=== PATIENT | male | born 1935 | race Hispanic/Latino ===

== ENCOUNTER → 2017-10-12 | Outpatient (CLI) | payer OTHER | END | disposition home or self-care (01) | LOC: OIH 12:42 | PROVIDERS: ATTEND Family Medicine | DX: I10 Essential (primary) hypertension (principal) | CPT/HCPCS: 71046 ==

== ENCOUNTER 2018-02-03 10:06 | Emergency (ER) | payer OTHER ==
[2018-02-03 11:04] LABS: BASOPHILS % (AUTO) 0.7 % (0.0-5.0); EOSINOPHILS % (AUTO) 3.9 % (0.0-8.0); HEMATOCRIT 28.7 % (42-54); LYMPHOCYTES % (AUTO) 17.4 % (21.0-51.0); MEAN CORPUSCULAR HEMOGLOBIN 29.1 pg (27.0-33.0); MEAN CORPUSCULAR HGB CONC 33.7 g/dL (32.0-36.0); MEAN CORPUSCULAR VOLUME 86.3 fL (79-99); MONOCYTES % (AUTO) 6.4 % (3.0-13.0); NEUTROPHILS % (AUTO) 71.6 % (40.0-77.0); PLATELET COUNT (AUTO) 168 K/uL (130-400); RED BLOOD CELL COUNT(AUTO) 3.33 MIL/uL (4.50-6.20); RED CELL DISTRIBUTION WIDTH 14.5 % (11.0-15.5); WHITE BLOOD COUNT (AUTO) 5.8 K/uL (4.8-10.8)
[2018-02-03 11:07] LABS: APPEARANCE,URINE Clear (CLEAR); BILIRUBIN,URINE Negative (NEGATIVE); COLOR,URINE Yellow (YELLOW); GLUCOSE, URINE (UA) Negative (NEGATIVE); KETONES,URINE Negative (NEGATIVE); LEUKOCYTE ESTERASE ,URINE Negative (NEGATIVE); NITRATE,URINE Negative (NEGATIVE); OCCULT BLOOD,URINE Negative (NEGATIVE); PH,URINE 5.5 (5.0-8.0); PROTEIN,URINE Negative (NEGATIVE); UROBILINOGEN,URINE 0.2 mg/dL (0.2-1.0)
[2018-02-03] MEDS ORDERED: ONDANSETRON HCL MDV 20ML 2 MG/ML VIAL ONE (11:09)
[2018-02-03] MEDS ORDERED: SODIUM CHLORIDE 0.9% 1000ML 1,000 ML IV ONE (11:10)
[2018-02-03 11:18] LABS: POTASSIUM 4.1 mmol/L (3.5-5.1)
[2018-02-03 11:31] LABS: ALBUMIN 3.4 g/dL (3.5-5.0); BILIRUBIN,TOTAL 0.5 mg/dL (0.2-1.0); CREATINE KINASE MB 1.6 ng/mL (0.5-3.6); TOTAL PROTEIN, SERUM 6.4 g/dL (6.0-8.3)
[2018-02-03 11:46] LABS: INR 1.03 (0.85-1.15); PARTIAL THROMBOPLASTIN TIME 30.4 SEC (26.3-35.5); PROTHROMBIN TIME 10.8 SEC (9.6-11.6)
[2018-02-03] MEDS ORDERED: ACETAMINOPHEN 325 MG TAB ONE (12:11)
[2018-02-03] MEDS ORDERED: TRAMADOL HCL 50 MG TABLET ONE (12:12)
== END 2018-02-03 14:39 | disposition home or self-care (01) ==
LOC: EDH 10:06
DX: G44.209 Tension-type headache, unspecified, not intractable (principal); R11.2 Nausea with vomiting, unspecified; I12.9 Hypertensive chronic kidney disease with stage 1 through stage 4 chronic kidney disease, or unspecified chronic kidney disease; N18.9 Chronic kidney disease, unspecified; E78.5 Hyperlipidemia, unspecified; Z79.899 Other long term (current) drug therapy; Z87.891 Personal history of nicotine dependence; Z98.890 Other specified postprocedural states
CPT/HCPCS: 36415; 70450; 80053; 81003; 82150; 82550; 82553; 83690; 84484; 85025; 85610; 85651; 85730; 93005; 96361; 96374; 99285; J7030

== ENCOUNTER → 2018-02-04 | Outpatient (CLI) | payer OTHER | END | disposition home or self-care (01) | LOC: OIH 10:05 | PROVIDERS: ATTEND Family Medicine | DX: R10.9 Unspecified abdominal pain (principal); M47.896 Other spondylosis, lumbar region | CPT/HCPCS: 74018 ==

== ENCOUNTER 2018-07-21 11:55 | Emergency (ER) | payer OTHER ==
[2018-07-21] MEDS ORDERED: ONDANSETRON HCL 4 MG/2 ML VIAL ONE (12:26)
[2018-07-21 12:55] LABS: BASOPHILS % (AUTO) 0.4 % (0.0-5.0); EOSINOPHILS % (AUTO) 1.3 % (0.0-8.0); HEMATOCRIT 29.2 % (42-54); LYMPHOCYTES % (AUTO) 19.8 % (21.0-51.0); MEAN CORPUSCULAR HEMOGLOBIN 29.8 pg (27.0-33.0); MEAN CORPUSCULAR HGB CONC 33.3 g/dL (32.0-36.0); MEAN CORPUSCULAR VOLUME 89.6 fL (79-99); MONOCYTES % (AUTO) 7.3 % (3.0-13.0); NEUTROPHILS % (AUTO) 71.2 % (40.0-77.0); PLATELET COUNT (AUTO) 199 K/uL (130-400); RED BLOOD CELL COUNT(AUTO) 3.26 MIL/uL (4.50-6.20); RED CELL DISTRIBUTION WIDTH 13.2 % (11.0-15.5); WHITE BLOOD COUNT (AUTO) 5.6 K/uL (4.8-10.8)
[2018-07-21 13:08] LABS: CREATININE 1.9 mg/dL (0.5-1.5); POTASSIUM 4.4 mmol/L (3.5-5.1)
[2018-07-21 13:12] LABS: ALBUMIN 3.4 g/dL (3.5-5.0); BILIRUBIN,DIRECT 0.1 mg/dL (0.0-0.3); BILIRUBIN,TOTAL 0.4 mg/dL (0.2-1.0); TOTAL PROTEIN, SERUM 6.7 g/dL (6.0-8.3)
[2018-07-21 13:52] LABS: B-TYPE NATRIURETIC PEPTIDE 104 pg/mL (0-100)
== END 2018-07-21 14:21 | disposition home or self-care (01) ==
LOC: EDH 11:55
DX: J10.1 Influenza due to other identified influenza virus with other respiratory manifestations (principal); E86.0 Dehydration; E78.5 Hyperlipidemia, unspecified; I10 Essential (primary) hypertension; Z98.890 Other specified postprocedural states
CPT/HCPCS: 36415; 71045; 74176; 80048; 80076; 83690; 83880; 84484; 85025; 87804 ×2; 93005; 96361; 96374; 99285; J2405

== ENCOUNTER 2018-12-02 19:48 | Inpatient (IN) | payer OTHER ==
[~2018-12-02] VITALS: Ht 172.7 cm; Wt 100.2 kg
[2018-12-02 21:00] LABS: BILIRUBIN,URINE Negative (NEGATIVE); COLOR,URINE Yellow (YELLOW); GLUCOSE, URINE (UA) Negative (NEGATIVE); KETONES,URINE Negative (NEGATIVE); LEUKOCYTE ESTERASE ,URINE Negative (NEGATIVE); NITRATE,URINE Negative (NEGATIVE); OCCULT BLOOD,URINE Negative (NEGATIVE); PH,URINE 6.5 (5.0-8.0); PROTEIN,URINE Negative (NEGATIVE); UROBILINOGEN,URINE 0.2 mg/dL (0.2-1.0)
[2018-12-02 21:05] LABS: APPEARANCE,URINE CLEAR (CLEAR)
[2018-12-02 21:13] LABS: BASOPHILS % (AUTO) 0.4 % (0.0-5.0); EOSINOPHILS % (AUTO) 1.5 % (0.0-8.0); HEMATOCRIT 30.3 % (42-54); LYMPHOCYTES % (AUTO) 16.9 % (21.0-51.0); MEAN CORPUSCULAR HEMOGLOBIN 29.7 pg (27.0-33.0); MEAN CORPUSCULAR HGB CONC 33.4 g/dL (32.0-36.0); MEAN CORPUSCULAR VOLUME 88.9 fL (79-99); MONOCYTES % (AUTO) 10.2 % (3.0-13.0); PLATELET COUNT (AUTO) 222 K/uL (130-400); RED BLOOD CELL COUNT(AUTO) 3.41 MIL/uL (4.50-6.20); RED CELL DISTRIBUTION WIDTH 15.7 % (11.0-15.5); WHITE BLOOD COUNT (AUTO) 7.8 K/uL (4.8-10.8)
[2018-12-02 21:27] LABS: CREATININE 1.8 mg/dL (0.5-1.5); INR 0.98 (0.85-1.15); PARTIAL THROMBOPLASTIN TIME 31.3 SEC (26.3-35.5); POTASSIUM 4.8 mmol/L (3.5-5.1); PROTHROMBIN TIME 10.3 SEC (9.6-11.6)
[2018-12-02 21:32] LABS: ALBUMIN 3.3 g/dL (3.5-5.0); BILIRUBIN,TOTAL 0.2 mg/dL (0.2-1.0); TOTAL PROTEIN, SERUM 6.7 g/dL (6.0-8.3)
[2018-12-02] MEDS ORDERED: MORPHINE SULFATE 4 MG/1ML SYG ONE (22:51)
[2018-12-02] MEDS ORDERED: ONDANSETRON HCL 4 MG/2 ML VIAL ONE (22:51)
[2018-12-03] MEDS ORDERED: FUROSEMIDE 10 MG/ML 4ML VIAL ONE (08:30)
[2018-12-03] MEDS ORDERED: PANTOPRAZOLE SODIUM 40 MG TABLET.DR PO ONE (08:31)
[2018-12-03 09:55] LABS: BASOPHILS % (AUTO) 0.4 % (0.0-5.0); EOSINOPHILS % (AUTO) 0.5 % (0.0-8.0); HEMATOCRIT 30.5 % (42-54); LYMPHOCYTES % (AUTO) 12.2 % (21.0-51.0); MEAN CORPUSCULAR HEMOGLOBIN 29.8 pg (27.0-33.0); MEAN CORPUSCULAR HGB CONC 33.6 g/dL (32.0-36.0); MEAN CORPUSCULAR VOLUME 88.8 fL (79-99); MONOCYTES % (AUTO) 9.2 % (3.0-13.0); NEUTROPHILS % (AUTO) 77.7 % (40.0-77.0); NUCLEATED RED BLOOD CELLS 0.1 % (0.0-0.19); PLATELET COUNT (AUTO) 195 K/uL (130-400); RED BLOOD CELL COUNT(AUTO) 3.44 MIL/uL (4.50-6.20); RED CELL DISTRIBUTION WIDTH 15.9 % (11.0-15.5); WHITE BLOOD COUNT (AUTO) 6.9 K/uL (4.8-10.8)
[2018-12-03 10:06] LABS: PHOSPHORUS 3.8 mg/dL (2.5-4.9); POTASSIUM 4.1 mmol/L (3.5-5.1)
[2018-12-03 10:14] LABS: CREATININE 1.6 mg/dL (0.5-1.5)
[2018-12-03] MEDS ORDERED: ACETAMINOPHEN 325 MG TAB ONE (10:57)
[2018-12-03] MEDS ORDERED: ZOLPIDEM TARTRATE 5 MG TAB PO PRN (13:15)
[2018-12-03] MEDS ORDERED: ONDANSETRON HCL 4 MG/2 ML VIAL IV PRN (13:15)
[2018-12-03] MEDS ORDERED: HYDROMORPHONE 1 MG/1 ML AMP IV PRN (13:15)
[2018-12-03] MEDS ORDERED: VANCOMYCIN 1GM+NS 250ML 250 ML IV SCH (13:30)
[2018-12-03 15:00] VITALS: BP 135/81
[2018-12-03] MEDS ORDERED: ASPI-988 PO (16:11)
[2018-12-03] MEDS ORDERED: TAMS0.4C32 PO (16:11)
[2018-12-03] MEDS ORDERED: SIMV20TA6 PO (16:11)
[2018-12-03] MEDS ORDERED: DUTA0.5C17 PO (16:11)
[2018-12-03] MEDS ORDERED: FURO40TA5 PO (16:11)
[2018-12-03] MEDS ORDERED: LOSA100T58 PO (16:11)
[2018-12-03] MEDS ORDERED: RANI150C4 PO (16:11)
[2018-12-03] MEDS ORDERED: SUCR1TAB28 PO (16:11)
[2018-12-03] MEDS ORDERED: ATEN100T PO (16:11)
[2018-12-03] MEDS ORDERED: OMEP40CA37 PO (16:11)
[2018-12-03] MEDS ORDERED: HYDR200T4 PO (16:11)
[2018-12-03] MEDS ORDERED: MONT10TA24 PO (16:11)
[2018-12-03 19:00] VITALS: BP 183/77
[2018-12-03] MEDS ORDERED: ASPIRIN PO PRN (19:30)
[2018-12-03] MEDS ORDERED: CAFFEINE PO PRN (19:30)
[2018-12-03] MEDS ORDERED: ACETAMINOPHEN PO PRN (19:30)
[2018-12-03] MEDS ORDERED: VANCOMYCIN 1.5 GM in SODIUM CHLORIDE 0.9% 250 ML IV SCH (19:45)
[2018-12-03] MEDS ORDERED: COMPOUND IV REFRIGERATED 1 EACH IVSOLN MISC PRN (20:15)
--- NOTE | 2018-12-03 21:00 | NUR ---
ACTIVITY Pt wanted to go to the bathroom,instructed re activity order for bedrest,pt weak to both legs,c/o pain to rt knee.Urinal provided.
[2018-12-03] MEDS: FINASTERIDE 5 MG TABLET PO SCH (21:41)
[2018-12-03] MEDS: SIMVASTATIN 20 MG TABLET PO SCH (21:41)
[2018-12-03] MEDS: FUROSEMIDE 10 MG/ML 4ML VIAL IVP SCH (21:41)
[2018-12-03] MEDS: SUCRALFATE 1 GM TABLET PO SCH (21:54)
[2018-12-03] MEDS: ACETAMINOPHEN 325 MG TAB PO PRN (21:55)
[2018-12-03] MEDS: ZOSYN 3.375GM+NS 50ML 50 ML IV SCH (23:59)
[2018-12-04] VITALS (7 sets, daily range): BP systolic 135–167; BP diastolic 66–82
--- NOTE | 2018-12-04 04:33 | NUR ---
BED REST Pt on bedrest with both legs elevated.
[2018-12-04] MEDS: HYDROCODONE/ACETAMINOPHEN 5/325 MG TAB PO PRN (04:46)
[2018-12-04 06:03] LABS: BASOPHILS % (AUTO) 0.3 % (0.0-5.0); EOSINOPHILS % (AUTO) 1.2 % (0.0-8.0); HEMATOCRIT 29.5 % (42-54); LYMPHOCYTES % (AUTO) 17.3 % (21.0-51.0); MEAN CORPUSCULAR HEMOGLOBIN 29.9 pg (27.0-33.0); MEAN CORPUSCULAR HGB CONC 34.1 g/dL (32.0-36.0); MEAN CORPUSCULAR VOLUME 87.6 fL (79-99); MONOCYTES % (AUTO) 8.5 % (3.0-13.0); NEUTROPHILS % (AUTO) 72.7 % (40.0-77.0); PLATELET COUNT (AUTO) 217 K/uL (130-400); RED BLOOD CELL COUNT(AUTO) 3.37 MIL/uL (4.50-6.20); RED CELL DISTRIBUTION WIDTH 15.9 % (11.0-15.5); WHITE BLOOD COUNT (AUTO) 6.4 K/uL (4.8-10.8)
[2018-12-04] MEDS ORDERED: PANTOPRAZOLE SODIUM 40 MG TABLET.DR PO ONE (06:04)
[2018-12-04] MEDS: PANTOPRAZOLE SODIUM 40 MG TABLET.DR PO SCH ×2 (06:10→09:00)
[2018-12-04] MEDS: SUCRALFATE 1 GM TABLET PO SCH ×3 (06:11→16:59)
[2018-12-04] MEDS: LACTULOSE 20 GM/30 ML UDCUP PO PRN ×2 (06:11→10:46)
[2018-12-04 06:18] LABS: CREATININE 1.7 mg/dL (0.5-1.5); MAGNESIUM 2.1 mg/dL (1.80-2.40); PHOSPHORUS 4.5 mg/dL (2.5-4.9); POTASSIUM 4.2 mmol/L (3.5-5.1)
[2018-12-04 06:30] LABS: HEMOGLOBIN A1C 6.5 % (4.0-6.0)
--- NOTE | 2018-12-04 07:47 | NUR ---
XOCHITL BHATT AND SPOUSE, BENIGNO MERCEDES X3, LIVE WITH SPOUSE, BOTH IND OF ADLS, BUT HAD WKR/WC, PT USES WALKER SOMETIMES, PT W DECREASED MOBILITY AT THIS TIME RELATED TO PAIN AND SWELLING IN LOWER EXTREMITIES NO HH NO PROVIDER, PLAN IS HOME CM TO FOLLOW Addendum: 12/04/18 at 0750 by EUGENE CASTILLO RN CM Amended: Links added.
[2018-12-04] MEDS ORDERED: ATENOLOL 50 MG TABLET PO SCH (09:00)
[2018-12-04] MEDS: ZOSYN 3.375GM+NS 50ML 50 ML IV SCH ×2 (10:29→22:55)
[2018-12-04] MEDS: HYDROXYCHLOROQUINE SULFATE 200 MG TAB PO SCH (10:30)
[2018-12-04] MEDS: FAMOTIDINE 20MG TAB 20 MG TAB PO SCH (10:30)
[2018-12-04] MEDS: FUROSEMIDE 10 MG/ML 4ML VIAL IVP SCH ×2 (10:30→22:56)
[2018-12-04] MEDS: MONTELUKAST SODIUM 10 MG TAB PO SCH (10:30)
[2018-12-04] MEDS: LOSARTAN 100 MG TABLET PO SCH (10:30)
[2018-12-04] MEDS: TAMSULOSIN HCL 0.4 MG CAP.ER.24H PO SCH (10:31)
[2018-12-04] MEDS ORDERED: HYDRALAZINE HCL 20 MG/ML VIAL IV PRN (13:45)
--- NOTE | 2018-12-04 14:46 | NUR ---
[facility] CONSULT PATIENT PRESENTS WITH FURUNCLES TO LEFT INNER CALF, NO DRAINAGE PRESENT; [facility] RECOMMENDATIONS SUBMITTED. Addendum: 12/04/18 at 1448 by JAVON CHILDRESS LVN LVN W Amended: Links added.
[2018-12-04] MEDS: VANCOMYCIN 1GM+NS 250ML 250 ML IV SCH (16:59)
[2018-12-04] MEDS: ACETAMINOPHEN 325 MG TAB PO PRN (17:15)
[2018-12-04] MEDS: FINASTERIDE 5 MG TABLET PO SCH (22:56)
[2018-12-04] MEDS: ATENOLOL 50 MG TABLET PO SCH (22:56)
[2018-12-04] MEDS: SIMVASTATIN 20 MG TABLET PO SCH (22:57)
[2018-12-05] MEDS: ACETAMINOPHEN 325 MG TAB PO PRN (02:54)
[2018-12-05 03:49] VITALS: BP 134/65
[2018-12-05 04:43] LABS: BASOPHILS % (AUTO) 0.4 % (0.0-5.0); EOSINOPHILS % (AUTO) 1.4 % (0.0-8.0); HEMATOCRIT 29.3 % (42-54); LYMPHOCYTES % (AUTO) 15.3 % (21.0-51.0); MEAN CORPUSCULAR HEMOGLOBIN 29.5 pg (27.0-33.0); MEAN CORPUSCULAR HGB CONC 33.5 g/dL (32.0-36.0); MEAN CORPUSCULAR VOLUME 88.1 fL (79-99); MONOCYTES % (AUTO) 8.3 % (3.0-13.0); NEUTROPHILS % (AUTO) 74.6 % (40.0-77.0); PLATELET COUNT (AUTO) 230 K/uL (130-400); RED BLOOD CELL COUNT(AUTO) 3.33 MIL/uL (4.50-6.20); RED CELL DISTRIBUTION WIDTH 15.3 % (11.0-15.5); WHITE BLOOD COUNT (AUTO) 6.8 K/uL (4.8-10.8)
[2018-12-05 04:54] LABS: B-TYPE NATRIURETIC PEPTIDE 101 pg/mL (0-100)
[2018-12-05 04:56] LABS: % IRON SATURATION 15.5 % (30-44)
[2018-12-05 05:07] LABS: BILIRUBIN,TOTAL 0.4 mg/dL (0.2-1.0); CREATININE 1.9 mg/dL (0.5-1.5); POTASSIUM 3.7 mmol/L (3.5-5.1); TOTAL PROTEIN, SERUM 6.4 g/dL (6.0-8.3)
[2018-12-05] MEDS: SUCRALFATE 1 GM TABLET PO SCH ×3 (07:31→17:40)
[2018-12-05] MEDS: PANTOPRAZOLE SODIUM 40 MG TABLET.DR PO SCH ×2 (07:31→09:00)
[2018-12-05 08:38] VITALS: BP 161/71
[2018-12-05] MEDS ORDERED: POTASSIUM CHLORIDE 20 MEQ ERTAB PO SCH (09:45)
[2018-12-05] MEDS ORDERED: COMPOUND IV MISC 1 EACH IVSOLN MISC PRN (10:00)
[2018-12-05] MEDS: MONTELUKAST SODIUM 10 MG TAB PO SCH (11:32)
[2018-12-05] MEDS: LOSARTAN 100 MG TABLET PO SCH (11:32)
[2018-12-05] MEDS: LACTULOSE 20 GM/30 ML UDCUP PO PRN (11:34)
[2018-12-05] MEDS: TAMSULOSIN HCL 0.4 MG CAP.ER.24H PO SCH (11:34)
[2018-12-05] MEDS: HYDROXYCHLOROQUINE SULFATE 200 MG TAB PO SCH (11:34)
[2018-12-05] MEDS: ATENOLOL 50 MG TABLET PO SCH ×2 (11:34→22:07)
[2018-12-05] MEDS: ZOSYN 3.375GM+NS 50ML 50 ML IV SCH (11:35)
[2018-12-05] MEDS: FAMOTIDINE 20MG TAB 20 MG TAB PO SCH (11:35)
[2018-12-05] MEDS: IRON SUCROSE COMPLEX 100 MG in SODIUM CHLORIDE 0.9% 50 ML IV SCH (11:42)
[2018-12-05 12:02] VITALS: BP 134/86
[2018-12-05 16:57] VITALS: BP 136/74
[2018-12-05 19:55] VITALS: BP 110/51
[2018-12-05] MEDS: VANCOMYCIN 1GM+NS 250ML 250 ML IV SCH (20:30)
[2018-12-05] MEDS ORDERED: SODIUM CHLORIDE 0.9% 250 ML IV ONE (20:31)
[2018-12-05] MEDS: SIMVASTATIN 20 MG TABLET PO SCH (22:07)
[2018-12-05] MEDS: FINASTERIDE 5 MG TABLET PO SCH (22:07)
[2018-12-05] MEDS: VANCOMYCIN 750MG + NS 250 ML IV SCH ×2 (22:11)
[2018-12-05 23:36] VITALS: BP 129/62
[2018-12-06 03:59] VITALS: BP 133/63
[2018-12-06 05:41] LABS: HEMATOCRIT 26.9 % (42-54); MEAN CORPUSCULAR HEMOGLOBIN 29.6 pg (27.0-33.0); MEAN CORPUSCULAR HGB CONC 33.6 g/dL (32.0-36.0); MEAN CORPUSCULAR VOLUME 87.9 fL (79-99); PLATELET COUNT (AUTO) 223 K/uL (130-400); RED BLOOD CELL COUNT(AUTO) 3.06 MIL/uL (4.50-6.20); RED CELL DISTRIBUTION WIDTH 15.8 % (11.0-15.5); WHITE BLOOD COUNT (AUTO) 5.6 K/uL (4.8-10.8)
[2018-12-06 05:50] LABS: BAND NEUTROPHILS % (MANUAL) 1 % (0-2); BASOPHILS % (MANUAL) 1 % (0-2); EOSINOPHILS % (MANUAL) 3 % (1-6); INR 0.99 (0.85-1.15); LYMPHOCYTES % (MANUAL) 20 % (22-44); MAN.DIFF COMMENT-IMPRESSION MANUAL DIFFERENTIAL; MONOCYTES % (MANUAL) 3 % (2-9); PROTHROMBIN TIME 10.4 SEC (9.6-11.6); SEGMENTED NEUTROPHILS % 72 % (40-70)
[2018-12-06 05:51] LABS: PLATELET MORPHOLOGY COMMENT ADEQUATE
[2018-12-06 05:58] LABS: B-TYPE NATRIURETIC PEPTIDE 58 pg/mL (0-100)
[2018-12-06 06:02] LABS: ALBUMIN 2.8 g/dL (3.5-5.0); BILIRUBIN,TOTAL 0.3 mg/dL (0.2-1.0); CREATININE 1.9 mg/dL (0.5-1.5); MAGNESIUM 2.1 mg/dL (1.80-2.40); PHOSPHORUS 4.3 mg/dL (2.5-4.9); POTASSIUM 3.9 mmol/L (3.5-5.1)
[2018-12-06] MEDS: PANTOPRAZOLE SODIUM 40 MG TABLET.DR PO SCH ×2 (07:30→08:38)
[2018-12-06 08:00] VITALS: BP 152/76
[2018-12-06] MEDS: ZOSYN 3.375GM+NS 50ML 50 ML IV SCH ×3 (08:36→22:02)
[2018-12-06] MEDS: TAMSULOSIN HCL 0.4 MG CAP.ER.24H PO SCH (08:37)
[2018-12-06] MEDS: FAMOTIDINE 20MG TAB 20 MG TAB PO SCH (08:37)
[2018-12-06] MEDS: SUCRALFATE 1 GM TABLET PO SCH ×3 (08:38→16:33)
[2018-12-06] MEDS: HYDROXYCHLOROQUINE SULFATE 200 MG TAB PO SCH (08:38)
[2018-12-06] MEDS: MONTELUKAST SODIUM 10 MG TAB PO SCH (08:38)
[2018-12-06] MEDS: LOSARTAN 100 MG TABLET PO SCH (08:39)
[2018-12-06] MEDS: ATENOLOL 50 MG TABLET PO SCH ×2 (08:39→22:02)
[2018-12-06 12:00] VITALS: BP 150/79
[2018-12-06] MEDS: VANCOMYCIN 750MG + NS 250 ML IV SCH ×2 (12:34)
--- NOTE | 2018-12-06 14:31 | NUR ---
DME REQUEST REQUESTING WHEELCHAIR. WILL FOLLOW UP WITH PRIMARY PHYSICIAN
[2018-12-06 16:00] VITALS: BP 177/70
[2018-12-06 19:12] VITALS: BP 137/71
[2018-12-06] MEDS: FINASTERIDE 5 MG TABLET PO SCH (22:01)
[2018-12-06] MEDS: SIMVASTATIN 20 MG TABLET PO SCH (22:01)
[2018-12-07 00:25] VITALS: BP 129/63
[2018-12-07] MEDS: VANCOMYCIN 750MG + NS 250 ML IV SCH ×4 (01:49→12:51)
[2018-12-07 03:59] VITALS: BP 147/83
[2018-12-07 08:00] VITALS: BP 154/77
[2018-12-07] MEDS: ZOSYN 3.375GM+NS 50ML 50 ML IV SCH ×2 (08:21→20:56)
[2018-12-07] MEDS: IRON SUCROSE COMPLEX 100 MG in SODIUM CHLORIDE 0.9% 50 ML IV SCH (08:22)
[2018-12-07] MEDS: HYDROXYCHLOROQUINE SULFATE 200 MG TAB PO SCH (08:28)
[2018-12-07] MEDS: PANTOPRAZOLE SODIUM 40 MG TABLET.DR PO SCH ×2 (08:28→08:31)
[2018-12-07] MEDS: MONTELUKAST SODIUM 10 MG TAB PO SCH (08:29)
[2018-12-07] MEDS: TAMSULOSIN HCL 0.4 MG CAP.ER.24H PO SCH (08:29)
[2018-12-07] MEDS: ATENOLOL 50 MG TABLET PO SCH ×2 (08:29→20:55)
[2018-12-07] MEDS: LOSARTAN 100 MG TABLET PO SCH (08:29)
[2018-12-07] MEDS: SUCRALFATE 1 GM TABLET PO SCH ×3 (08:29→16:50)
[2018-12-07] MEDS: FAMOTIDINE 20MG TAB 20 MG TAB PO SCH (08:30)
[2018-12-07] MEDS: ACETAMINOPHEN 325 MG TAB PO PRN (11:31)
[2018-12-07 12:00] VITALS: BP 123/61
[2018-12-07 16:00] VITALS: BP 164/88
[2018-12-07 20:00] VITALS: BP 147/77
[2018-12-07] MEDS: FINASTERIDE 5 MG TABLET PO SCH (20:54)
[2018-12-07] MEDS: SIMVASTATIN 20 MG TABLET PO SCH (20:54)
[2018-12-08] VITALS: BP 144/72
[2018-12-08] MEDS: VANCOMYCIN 750MG + NS 250 ML IV SCH ×6 (00:01→23:25)
[2018-12-08] MEDS: ACETAMINOPHEN 325 MG TAB PO PRN ×3 (01:12→11:04)
[2018-12-08] MEDS ORDERED: SODIUM CHLORIDE 0.9% 250 ML IV ONE (01:49)
[2018-12-08 04:00] VITALS: BP 154/71
[2018-12-08 06:08] LABS: MEAN CORPUSCULAR HEMOGLOBIN 29.1 pg (27.0-33.0); MEAN CORPUSCULAR HGB CONC 33.1 g/dL (32.0-36.0); MEAN CORPUSCULAR VOLUME 87.9 fL (79-99); NUCLEATED RED BLOOD CELLS 0.1 % (0.0-0.19); PLATELET COUNT (AUTO) 212 K/uL (130-400); RED BLOOD CELL COUNT(AUTO) 3.07 MIL/uL (4.50-6.20); RED CELL DISTRIBUTION WIDTH 15.2 % (11.0-15.5); WHITE BLOOD COUNT (AUTO) 5.4 K/uL (4.8-10.8)
[2018-12-08 06:30] LABS: CREATININE 1.6 mg/dL (0.5-1.5); POTASSIUM 3.8 mmol/L (3.5-5.1)
[2018-12-08] MEDS: SUCRALFATE 1 GM TABLET PO SCH ×3 (06:32→18:36)
[2018-12-08] MEDS: PANTOPRAZOLE SODIUM 40 MG TABLET.DR PO SCH (06:32)
[2018-12-08 08:00] VITALS: BP 175/75
[2018-12-08] MEDS: TAMSULOSIN HCL 0.4 MG CAP.ER.24H PO SCH (09:17)
[2018-12-08] MEDS: ATENOLOL 50 MG TABLET PO SCH ×2 (09:17→20:08)
[2018-12-08] MEDS: HYDROXYCHLOROQUINE SULFATE 200 MG TAB PO SCH (09:17)
[2018-12-08] MEDS: MONTELUKAST SODIUM 10 MG TAB PO SCH (09:17)
[2018-12-08] MEDS: LOSARTAN 100 MG TABLET PO SCH (09:18)
[2018-12-08] MEDS: ZOSYN 3.375GM+NS 50ML 50 ML IV SCH ×2 (09:18→20:08)
[2018-12-08] MEDS: IRON SUCROSE COMPLEX 100 MG in SODIUM CHLORIDE 0.9% 50 ML IV SCH (10:56)
[2018-12-08 12:00] VITALS: BP 183/87
[2018-12-08 16:00] VITALS: BP 165/72
[2018-12-08] MEDS: HYDROCODONE/ACETAMINOPHEN 5/325 MG TAB PO PRN (18:36)
[2018-12-08 20:00] VITALS: BP 174/98
[2018-12-08] MEDS: SIMVASTATIN 20 MG TABLET PO SCH (20:07)
[2018-12-08] MEDS: FINASTERIDE 5 MG TABLET PO SCH (20:07)
[2018-12-09] VITALS (7 sets, daily range): BP systolic 133–178; BP diastolic 56–82
[2018-12-09] MEDS: ACETAMINOPHEN 325 MG TAB PO PRN (03:45)
[2018-12-09 06:03] LABS: MEAN CORPUSCULAR HEMOGLOBIN 29.9 pg (27.0-33.0); MEAN CORPUSCULAR HGB CONC 34.1 g/dL (32.0-36.0); MEAN CORPUSCULAR VOLUME 87.6 fL (79-99); PLATELET COUNT (AUTO) 210 K/uL (130-400); RED CELL DISTRIBUTION WIDTH 15.4 % (11.0-15.5); WHITE BLOOD COUNT (AUTO) 5.9 K/uL (4.8-10.8)
[2018-12-09 06:10] LABS: CREATININE 1.6 mg/dL (0.5-1.5); POTASSIUM 4.1 mmol/L (3.5-5.1)
[2018-12-09] MEDS: PANTOPRAZOLE SODIUM 40 MG TABLET.DR PO SCH (06:34)
[2018-12-09] MEDS: SUCRALFATE 1 GM TABLET PO SCH ×3 (06:34→17:41)
[2018-12-09 07:58] LABS: BASOPHILS % (MANUAL) 1 % (0-2); EOSINOPHILS % (MANUAL) 3 % (1-6); LYMPHOCYTES % (MANUAL) 19 % (22-44); MAN.DIFF COMMENT-IMPRESSION MANUAL DIFFERENTIAL; MONOCYTES % (MANUAL) 6 % (2-9); PLATELET MORPHOLOGY COMMENT ADEQUATE; SEGMENTED NEUTROPHILS % 71 % (40-70)
[2018-12-09] MEDS: ATENOLOL 50 MG TABLET PO SCH ×2 (08:37→20:34)
[2018-12-09] MEDS: TAMSULOSIN HCL 0.4 MG CAP.ER.24H PO SCH (08:39)
[2018-12-09] MEDS: FAMOTIDINE 20MG TAB 20 MG TAB PO SCH (08:39)
[2018-12-09] MEDS: MONTELUKAST SODIUM 10 MG TAB PO SCH (08:40)
[2018-12-09] MEDS: LOSARTAN 100 MG TABLET PO SCH (08:40)
[2018-12-09] MEDS: HYDROXYCHLOROQUINE SULFATE 200 MG TAB PO SCH (08:40)
[2018-12-09] MEDS: ZOSYN 3.375GM+NS 50ML 50 ML IV SCH ×2 (08:41→20:33)
[2018-12-09] MEDS: IRON SUCROSE COMPLEX 100 MG in SODIUM CHLORIDE 0.9% 50 ML IV SCH (08:41)
[2018-12-09] MEDS: HYDROCODONE/ACETAMINOPHEN 5/325 MG TAB PO PRN (08:46)
[2018-12-09] MEDS ORDERED: FUROSEMIDE 40 MG TABLET PO SCH (10:15)
[2018-12-09] MEDS: VANCOMYCIN 750MG + NS 250 ML IV SCH ×4 (12:51→22:58)
[2018-12-09] MEDS: FUROSEMIDE 40 MG TABLET PO SCH (17:42)
[2018-12-09] MEDS: FINASTERIDE 5 MG TABLET PO SCH (20:34)
[2018-12-09] MEDS: SIMVASTATIN 20 MG TABLET PO SCH (20:34)
--- NOTE | 2018-12-09 20:35 | NUR ---
MEDS DUE MEDS ADMINISTERED, TOLERATED WELL. ENCOURAGED TO ELEVATE BLE EVEN WHEN SITTING DOWN, PT VERBALIZES UNDERSTANDING. KEPT RESTED AND COMFORTABLE. CALL LIGHT WITHIN REACH.
--- NOTE | 2018-12-09 22:30 | NUR ---
REFUSED PT REFUSED SCD'S AT THIS TIME. KEPT THEM OFF AND [employer] HARVESTING SUPERVISOR ASKED PT TO SING REFUSAL FORM.
--- NOTE | 2018-12-10 | NUR ---
REFUSED PT VERBALIZES INABILITY TO SLEEP AND IS SITTING ON THE CHAIR. REFUSED DAWSONIEN AT THIS TIME. KEPT RESTED. WILL MONITOR PT. Addendum: 12/10/18 at 0010 by KAROL ALVARADO RN RN Amended: Links added.
--- NOTE | 2018-12-10 02:00 | NUR ---
ROUNDS PT IS RESTING IN BED, ASLEEP. NO DISTRESS NOTED. KEPT COMFORTABLE. CALL LIGHT WITHIN REACH. WILL MONITOR PT.
[2018-12-10 04:00] VITALS: BP 135/64
[2018-12-10 05:02] LABS: CREATININE 1.7 mg/dL (0.5-1.5); POTASSIUM 3.9 mmol/L (3.5-5.1)
[2018-12-10] MEDS: SUCRALFATE 1 GM TABLET PO SCH ×2 (05:32→11:36)
[2018-12-10] MEDS: PANTOPRAZOLE SODIUM 40 MG TABLET.DR PO SCH (05:32)
--- NOTE | 2018-12-10 05:32 | NUR ---
MEDS SALINE LOCKED PT AND DUE MEDS ADMINISTERED, TOLERATED WELL. KEPT RESTED AND COMFORTABLE. CALL LIGHT WITHIN REACH. PT WANTED TO KNOW WHAT TIME HE COULD GO HOME AND WAS INFORMED THAT MD NEEDS TO MAKE ROUNDS FIRST AND TELEPHONE INFORMATION CLERK DO NOT HAVE THE EXACT TIME FOR MD ROUNDS.
[2018-12-10 07:58] VITALS: BP 140/69
[2018-12-10] MEDS: ZOSYN 3.375GM+NS 50ML 50 ML IV SCH (09:59)
[2018-12-10] MEDS: TAMSULOSIN HCL 0.4 MG CAP.ER.24H PO SCH (10:01)
[2018-12-10] MEDS: ATENOLOL 50 MG TABLET PO SCH (10:01)
[2018-12-10] MEDS: MONTELUKAST SODIUM 10 MG TAB PO SCH (10:02)
[2018-12-10] MEDS: FUROSEMIDE 40 MG TABLET PO SCH (10:02)
[2018-12-10] MEDS: LOSARTAN 100 MG TABLET PO SCH (10:02)
[2018-12-10] MEDS: HYDROXYCHLOROQUINE SULFATE 200 MG TAB PO SCH (10:02)
[2018-12-10] MEDS: FAMOTIDINE 20MG TAB 20 MG TAB PO SCH (10:02)
[2018-12-10] MEDS: IRON SUCROSE COMPLEX 100 MG in SODIUM CHLORIDE 0.9% 50 ML IV SCH (10:05)
[2018-12-10 11:00] VITALS: BP 155/75
--- NOTE | 2018-12-10 13:45 | NUR ---
MELECIO - LOS X 7 Patient with refusal to eat due to frustration. Patient stated he doesn't want to eat food but wants to see Doctor. Patient reports no GI distress. Decreased appetite caused by frustration. Patient LBM 12/09/18. Patient monitored labs: Hgb 9.6, BUN 24, Cr 1.7, GFR 41, Glu 122, Alb 2.8. RD to follow-up. Please notify as additional nutrition concerns arise. Thank you. Addendum: 12/10/18 at [address] RD Amended: Links added.
--- NOTE | 2018-12-10 14:00 | NUR ---
DISCHARGE INSTRUCTIONS INSTRUCTION GIVEN TO PT, INFORMED NEED TO CALL FOR FOLLOW APPT TODAY OR TOMORROW, FOR APPT WITHIN 3 DAYS, ALSO NEED TO FOLLOW RENAL DIET, INFO. GIVEN. PT ANXIOUS TO GO. NO DISTRESS NOTED.
--- NOTE | 2018-12-10 14:40 | NUR ---
DISCHARGE INSTRUCTIONS WERE GIVEN TO THE PATIENT BY CHARGE NURSE ALEKSANDAR, AND I TOOK HER IV OUT WITHOUT PROBLEM. PATIENT LEFT THE UNIT IN STABLE CONDITION VIA WHEELCHAIR.
== END 2018-12-10 14:50 | disposition home or self-care (01) | DRG 683 ==
LOC: EDH 19:48 → EDHIP 12-03 01:50 → OBSVTOIN 12-03 01:50 → 3BH 12-03 14:44
PROVIDERS: ADMIT Family Medicine; ATTEND Family Medicine
DX: N17.9 Acute kidney failure, unspecified (principal); L03.115 Cellulitis of right lower limb; I13.0 Hypertensive heart and chronic kidney disease with heart failure and stage 1 through stage 4 chronic kidney disease, or unspecified chronic kidney disease; L03.116 Cellulitis of left lower limb; N18.3 Chronic kidney disease, stage 3 (moderate); M71.21 Synovial cyst of popliteal space [Baker], right knee; I50.9 Heart failure, unspecified; D64.9 Anemia, unspecified; N40.0 Benign prostatic hyperplasia without lower urinary tract symptoms; E11.22 Type 2 diabetes mellitus with diabetic chronic kidney disease; E11.65 Type 2 diabetes mellitus with hyperglycemia; E78.00 Pure hypercholesterolemia, unspecified; E78.5 Hyperlipidemia, unspecified; K21.9 Gastro-esophageal reflux disease without esophagitis; L02.92 Furuncle, unspecified; Z96.659 Presence of unspecified artificial knee joint; M06.9 Rheumatoid arthritis, unspecified; M19.90 Unspecified osteoarthritis, unspecified site; Z79.899 Other long term (current) drug therapy
CPT/HCPCS: 36415; 71045; 73562; 73700; 76770; 76882; 80048; 80053; 80061; 80202; 81003; 82948; 83036; 83540; 83550; 83735; 83880; 84100; 84484; 84550; 85025; 85027; 85610; 85651; 85730; 86140; 86431; 87040; 93005; 93306; 93970; 97039; G0378; J1170; J1756; J1940; J2270; J2405; J2543; J3370; J7030

== ENCOUNTER 2018-12-16 20:11 | Emergency (ER) | payer OTHER ==
[~2018-12-16 20:11] MED LIST: ASPI-988 PO; ATEN100T PO; DUTA0.5C17 PO; FURO40TA5 PO; HYDR200T4 PO; LOSA100T58 PO; MONT10TA24 PO; OMEP40CA37 PO; RANI150C4 PO; SIMV20TA6 PO; SUCR1TAB28 PO; TAMS0.4C32 PO
[2018-12-16 21:12] LABS: BASOPHILS % (AUTO) 0.4 % (0.0-5.0); EOSINOPHILS % (AUTO) 0.8 % (0.0-8.0); HEMATOCRIT 27.3 % (42-54); LYMPHOCYTES % (AUTO) 7.6 % (21.0-51.0); MEAN CORPUSCULAR HEMOGLOBIN 29.1 pg (27.0-33.0); MEAN CORPUSCULAR VOLUME 88.1 fL (79-99); MONOCYTES % (AUTO) 6.6 % (3.0-13.0); NEUTROPHILS % (AUTO) 84.6 % (40.0-77.0); NUCLEATED RED BLOOD CELLS 0.1 % (0.0-0.19); PLATELET COUNT (AUTO) 182 K/uL (130-400); RED BLOOD CELL COUNT(AUTO) 3.09 MIL/uL (4.50-6.20); RED CELL DISTRIBUTION WIDTH 15.5 % (11.0-15.5); WHITE BLOOD COUNT (AUTO) 11.1 K/uL (4.8-10.8)
[2018-12-16 21:22] LABS: POTASSIUM 4.5 mmol/L (3.5-5.1)
[2018-12-16 21:27] LABS: BILIRUBIN,TOTAL 0.3 mg/dL (0.2-1.0); TOTAL PROTEIN, SERUM 6.6 g/dL (6.0-8.3)
[2018-12-16 21:33] LABS: ALBUMIN 3.2 g/dL (3.5-5.0); CRP QUANTITATIVE 56.7 mg/L (0.00-9.0)
[2018-12-16 22:16] LABS: ERYTHROCYTE SEDIMENTATION RATE 65 MM/HR (0-20)
[2018-12-16 22:18] LABS: INR 0.99 (0.85-1.15); PARTIAL THROMBOPLASTIN TIME 29.5 SEC (26.3-35.5); PROTHROMBIN TIME 10.4 SEC (9.6-11.6)
[2018-12-16] MEDS ORDERED: TRAMADOL HCL 50 MG TABLET ONE (22:26)
[2018-12-16] MEDS ORDERED: IPRATROPIUM/ALBUTEROL SULFATE 3 ML SOLUTION IH ONE (22:57)
[2018-12-16] MEDS ORDERED: CLINDAMYCIN 600 MG/D5% WATER 50 ML IV ONE (22:59)
== END 2018-12-16 23:35 | disposition home or self-care (01) ==
LOC: EDH 20:11
DX: S63.8X1A Sprain of other part of right wrist and hand, initial encounter (principal); L03.113 Cellulitis of right upper limb; I10 Essential (primary) hypertension; E78.5 Hyperlipidemia, unspecified; W01.0XXA Fall on same level from slipping, tripping and stumbling without subsequent striking against object, initial encounter; Y93.89 Activity, other specified; Y92.89 Other specified places as the place of occurrence of the external cause; Y99.8 Other external cause status
CPT/HCPCS: 36415; 71045; 73090; 73130; 80053; 82550; 84484; 85025; 85610; 85651; 85730; 86140; 93005; 93971; 94640; 96374; 99284; J3490

== ENCOUNTER → 2018-12-18 | Outpatient (CLI) | payer OTHER | END | disposition home or self-care (01) | LOC: RAH 13:37 | PROVIDERS: ATTEND Family Medicine | DX: M19.041 Primary osteoarthritis, right hand (principal); M25.741 Osteophyte, right hand; M19.011 Primary osteoarthritis, right shoulder; M19.021 Primary osteoarthritis, right elbow; M79.89 Other specified soft tissue disorders | CPT/HCPCS: 73060; 73090; 73130; 93971 ==

== ENCOUNTER → 2019-03-18 | Outpatient (CLI) | payer OTHER | END | disposition home or self-care (01) | LOC: OIH 14:27 | PROVIDERS: ATTEND Internal Medicine | DX: M17.0 Bilateral primary osteoarthritis of knee (principal); M06.4 Inflammatory polyarthropathy | CPT/HCPCS: 73560 ==

== ENCOUNTER → 2019-04-23 | Outpatient (CLI) | payer OTHER | END | disposition home or self-care (01) | LOC: OIH 09:42 | PROVIDERS: ATTEND Family Medicine | DX: R05 Cough (principal); R06.02 Shortness of breath | CPT/HCPCS: 71046 ==

== ENCOUNTER 2019-05-21 13:42 | Emergency (ER) | payer OTHER ==
[2019-05-21 15:08] LABS: BASOPHILS % (AUTO) 0.4 % (0.0-5.0); EOSINOPHILS % (AUTO) 1.5 % (0.0-8.0); HEMATOCRIT 29.8 % (42-54); MEAN CORPUSCULAR HEMOGLOBIN 29.9 pg (27.0-33.0); MONOCYTES % (AUTO) 7.9 % (3.0-13.0); NEUTROPHILS % (AUTO) 75.2 % (40.0-77.0); PLATELET COUNT (AUTO) 274 K/uL (130-400); RED BLOOD CELL COUNT(AUTO) 3.38 MIL/uL (4.50-6.20); RED CELL DISTRIBUTION WIDTH 14.4 % (11.0-15.5); WHITE BLOOD COUNT (AUTO) 8.4 K/uL (4.8-10.8)
[2019-05-21 15:11] LABS: APPEARANCE,URINE Clear (CLEAR); BILIRUBIN,URINE Negative (NEGATIVE); COLOR,URINE Yellow (YELLOW); GLUCOSE, URINE (UA) Negative (NEGATIVE); KETONES,URINE Negative (NEGATIVE); LEUKOCYTE ESTERASE ,URINE Negative (NEGATIVE); NITRATE,URINE Negative (NEGATIVE); OCCULT BLOOD,URINE Negative (NEGATIVE); PROTEIN,URINE Negative (NEGATIVE)
[2019-05-21 15:28] LABS: B-TYPE NATRIURETIC PEPTIDE 269 pg/mL (0-100)
[2019-05-21 15:29] LABS: CREATININE 2.4 mg/dL (0.5-1.5)
[2019-05-21 15:34] LABS: BILIRUBIN,DIRECT 0.1 mg/dL (0.0-0.3); BILIRUBIN,TOTAL 0.4 mg/dL (0.2-1.0); TOTAL PROTEIN, SERUM 7.1 g/dL (6.0-8.3)
== END 2019-05-21 17:20 | disposition home or self-care (01) ==
LOC: EDH 13:42
DX: S80.01XA Contusion of right knee, initial encounter (principal); S80.02XA Contusion of left knee, initial encounter; M79.601 Pain in right arm; I12.9 Hypertensive chronic kidney disease with stage 1 through stage 4 chronic kidney disease, or unspecified chronic kidney disease; N18.9 Chronic kidney disease, unspecified; E78.5 Hyperlipidemia, unspecified; Z79.899 Other long term (current) drug therapy; Z98.890 Other specified postprocedural states; Z87.891 Personal history of nicotine dependence; W01.0XXA Fall on same level from slipping, tripping and stumbling without subsequent striking against object, initial encounter; Y93.89 Activity, other specified; Y92.89 Other specified places as the place of occurrence of the external cause; Y99.8 Other external cause status
CPT/HCPCS: 36415; 73562; 80048; 80076; 81003; 82550; 83690; 83880; 84484; 85025; 93005

== ENCOUNTER 2019-05-27 20:15 | Inpatient (IN) | payer OTHER | END 2019-05-30 15:10 | disposition home or self-care (01) | LOC: EDH 20:15 → EDHIP 21:55 → 2AH 23:58 | DX: E87.1 Hypo-osmolality and hyponatremia (principal); I13.0 Hypertensive heart and chronic kidney disease with heart failure and stage 1 through stage 4 chronic kidney disease, or unspecified chronic kidney disease; R10.84 Generalized abdominal pain; N18.3 Chronic kidney disease, stage 3 (moderate); I12.9 Hypertensive chronic kidney disease with stage 1 through stage 4 chronic kidney disease, or unspecified chronic kidney disease; M06.9 Rheumatoid arthritis, unspecified; E11.22 Type 2 diabetes mellitus with diabetic chronic kidney disease ==

== ENCOUNTER 2019-12-21 14:51 | Observation (INO) | payer OTHER ==
[~2019-12-21 14:51] MED LIST changes: -DUTA0.5C17 PO; +DUTA0.5C18 PO; -MONT10TA24 PO; +MONT10TA26 PO; +OMEP40CA13 PO; -OMEP40CA37 PO; +SIMV-43 PO; -SIMV20TA6 PO
[2019-12-21] MEDS ORDERED: ASPIRIN 325 MG TABLET ONE (15:41)
[2019-12-21 15:44] LABS: BASOPHILS % (AUTO) 0.5 % (0.0-5.0); EOSINOPHILS % (AUTO) 1.1 % (0.0-8.0); HEMATOCRIT 30.1 % (42-54); LYMPHOCYTES % (AUTO) 18.4 % (21.0-51.0); MEAN CORPUSCULAR HEMOGLOBIN 30.6 pg (27.0-33.0); MEAN CORPUSCULAR HGB CONC 33.2 g/dL (32.0-36.0); MONOCYTES % (AUTO) 7.1 % (3.0-13.0); NEUTROPHILS % (AUTO) 72.4 % (40.0-77.0); PLATELET COUNT (AUTO) 162 K/uL (130-400); RED BLOOD CELL COUNT(AUTO) 3.27 MIL/uL (4.50-6.20); RED CELL DISTRIBUTION WIDTH 13.7 % (11.0-15.5); WHITE BLOOD COUNT (AUTO) 6.6 K/uL (4.8-10.8)
[2019-12-21 16:06] LABS: CREATININE 2.2 mg/dL (0.5-1.5); POTASSIUM 3.9 mmol/L (3.5-5.1)
[2019-12-21 16:11] LABS: ALBUMIN 3.6 g/dL (3.5-5.0); BILIRUBIN,TOTAL 0.4 mg/dL (0.2-1.0); TOTAL PROTEIN, SERUM 6.2 g/dL (6.0-8.3)
[2019-12-21 16:53] LABS: INR 0.92 (0.85-1.15); PARTIAL THROMBOPLASTIN TIME 25.9 SEC (26.3-35.5)
== END 2019-12-21 17:11 | disposition left against medical advice (07) ==
LOC: EDH 14:51 → EDHIP 16:23
PROVIDERS: ADMIT Internal Medicine; ATTEND Internal Medicine
DX: E78.5 Hyperlipidemia, unspecified (principal); I10 Essential (primary) hypertension; Z87.891 Personal history of nicotine dependence
CPT/HCPCS: 36415; 71045; 80053; 82550; 84484; 85025; 85610; 85730; 93005; 99285; G0378

== ENCOUNTER → 2020-03-11 | Outpatient (CLI) | payer OTHER | END | disposition home or self-care (01) | LOC: SHCH 08:13 | PROVIDERS: ATTEND Internal Medicine Cardiovascular Disease | DX: I34.0 Nonrheumatic mitral (valve) insufficiency (principal); I87.2 Venous insufficiency (chronic) (peripheral); I73.9 Peripheral vascular disease, unspecified | CPT/HCPCS: 93306; 93925; 93970 ==

== ENCOUNTER 2020-11-06 09:51 | Emergency (ER) | payer OTHER ==
[~2020-11-06 09:51] MED LIST changes: -MONT10TA26 PO; +MONT10TA96 PO
[2020-11-06 10:35] LABS: BASOPHILS % (AUTO) 0.2 % (0.0-5.0); EOSINOPHILS % (AUTO) 1.3 % (0.0-8.0); HEMATOCRIT 27.8 % (42-54); LYMPHOCYTES % (AUTO) 14.6 % (21.0-51.0); MEAN CORPUSCULAR HEMOGLOBIN 29.4 pg (27.0-33.0); MEAN CORPUSCULAR HGB CONC 33.1 g/dL (32.0-36.0); MEAN CORPUSCULAR VOLUME 88.8 fL (79-99); MONOCYTES % (AUTO) 7.7 % (3.0-13.0); PLATELET COUNT (AUTO) 145 K/uL (130-400); RED BLOOD CELL COUNT(AUTO) 3.13 MIL/uL (4.50-6.20); RED CELL DISTRIBUTION WIDTH 12.5 % (11.0-15.5); WHITE BLOOD COUNT (AUTO) 5.3 K/uL (4.8-10.8)
[2020-11-06 10:47] LABS: CREATININE 2.2 mg/dL (0.5-1.5); POTASSIUM 4.2 mmol/L (3.5-5.1)
[2020-11-06 10:55] LABS: ALBUMIN 3.5 g/dL (3.5-5.0); BILIRUBIN,TOTAL 0.5 mg/dL (0.2-1.0); TOTAL PROTEIN, SERUM 6.5 g/dL (6.0-8.3)
[2020-11-06 11:16] LABS: APPEARANCE,URINE Clear (CLEAR); BILIRUBIN,URINE Negative (NEGATIVE); COLOR,URINE Yellow (YELLOW); GLUCOSE, URINE (UA) Negative (NEGATIVE); KETONES,URINE Negative (NEGATIVE); LEUKOCYTE ESTERASE ,URINE Negative (NEGATIVE); NITRATE,URINE Negative (NEGATIVE); OCCULT BLOOD,URINE Negative (NEGATIVE); PH,URINE 6.5 (5.0-8.0); PROTEIN,URINE Negative (NEGATIVE); UROBILINOGEN,URINE 0.2 mg/dL (0.2-1.0)
== END 2020-11-06 14:58 | disposition home or self-care (01) ==
LOC: EDH 09:51
DX: R11.2 Nausea with vomiting, unspecified (principal); R51.9 Headache, unspecified; E78.5 Hyperlipidemia, unspecified; I10 Essential (primary) hypertension; Z98.890 Other specified postprocedural states
CPT/HCPCS: 36415; 74176; 80053; 81003; 82550; 83605; 83690; 84484; 85025; 93005

== ENCOUNTER → 2020-11-11 | Outpatient (CLI) | payer OTHER ==
[~2020-11-11] MED LIST changes: -DUTA0.5C18 PO; +DUTA0.5C37 PO; +MONT10TA32 PO; -MONT10TA96 PO
== END | disposition home or self-care (01) ==
LOC: RAH 12:04
PROVIDERS: ATTEND Internal Medicine
DX: M79.604 Pain in right leg (principal)
CPT/HCPCS: 93971

== ENCOUNTER → 2021-03-01 | Outpatient (CLI) | payer OTHER | END | disposition home or self-care (01) | LOC: RAH 10:53 | PROVIDERS: ATTEND Internal Medicine | DX: N18.4 Chronic kidney disease, stage 4 (severe) (principal); N28.1 Cyst of kidney, acquired | CPT/HCPCS: 76770 ==

== ENCOUNTER → 2021-03-25 | Outpatient (CLI) | payer OTHER ==
[~2021-03-25] MED LIST changes: -OMEP40CA13 PO; +OMEP40CA21 PO
== END | disposition home or self-care (01) ==
LOC: RAH 14:28
PROVIDERS: ATTEND Internal Medicine
DX: N20.0 Calculus of kidney (principal); I25.10 Atherosclerotic heart disease of native coronary artery without angina pectoris; N26.1 Atrophy of kidney (terminal); N28.1 Cyst of kidney, acquired
CPT/HCPCS: 74176

== ENCOUNTER 2021-09-16 11:49 | Observation (INO) | payer OTHER ==
[~2021-09-16] VITALS: Ht 172.7 cm; Wt 102.2 kg
[~2021-09-16 11:49] MED LIST changes: -ASPI-988 PO; -DUTA0.5C37 PO; +FAMO40TA7 PO; +GABA-529 PO; -HYDR200T4 PO; +LINA145C PO; -LOSA100T58 PO; -MONT10TA32 PO; -OMEP40CA21 PO; +PANT20TA18 PO; -RANI150C4 PO; -SUCR1TAB28 PO; +TAMS-1 PO; -TAMS0.4C32 PO
[2021-09-16 12:26] LABS: BASOPHILS % (AUTO) 0.4 % (0.0-5.0); HEMATOCRIT 28.1 % (42-54); LYMPHOCYTES % (AUTO) 16.3 % (21.0-51.0); MEAN CORPUSCULAR HEMOGLOBIN 30.3 pg (27.0-33.0); MEAN CORPUSCULAR HGB CONC 32.7 g/dL (32.0-36.0); MEAN CORPUSCULAR VOLUME 92.4 fL (79-99); MONOCYTES % (AUTO) 7.2 % (3.0-13.0); NEUTROPHILS % (AUTO) 73.7 % (40.0-77.0); PLATELET COUNT (AUTO) 134 K/uL (130-400); RED BLOOD CELL COUNT(AUTO) 3.04 MIL/uL (4.50-6.20); RED CELL DISTRIBUTION WIDTH 12.6 % (11.0-15.5); WHITE BLOOD COUNT (AUTO) 5.6 K/uL (4.8-10.8)
[2021-09-16] MEDS ORDERED: ONDANSETRON 4MG INJ IVP ONE (12:30)
[2021-09-16] MEDS ORDERED: MAG/ALUM/SIMETH 30 ML UDCUP PO ONE (12:30)
[2021-09-16] MEDS ORDERED: FAMOTIDINE 20MG VIAL IV ONE (12:30)
[2021-09-16 12:46] LABS: CREATININE 2.8 mg/dL (0.5-1.5); POTASSIUM 4.3 mmol/L (3.5-5.1)
[2021-09-16 12:50] LABS: ALBUMIN 3.5 g/dL (3.5-5.0); BILIRUBIN,TOTAL 0.5 mg/dL (0.2-1.0); CRP QUANTITATIVE 23.5 mg/L (0.00-9.0); TOTAL PROTEIN, SERUM 6.8 g/dL (6.0-8.3)
[2021-09-16] MEDS ORDERED: 0.9%NACL 1000ML 1,000 ML IV ONE (13:30)
[2021-09-16] MEDS ORDERED: LACTULOSE 20 GM/30 ML UDCUP PO PRN (14:30)
[2021-09-16] MEDS ORDERED: DOCUSATE SODIUM 100 MG CAP PO PRN (14:30)
[2021-09-16 16:00] VITALS: BP 143/68
[2021-09-16] MEDS ORDERED: GABA-529 PO (16:15)
[2021-09-16] MEDS ORDERED: ATEN100T PO (16:15)
[2021-09-16] MEDS ORDERED: TAMS-1 PO (16:15)
[2021-09-16] MEDS ORDERED: FAMO40TA7 PO (16:15)
[2021-09-16] MEDS ORDERED: LINA145C PO (16:15)
[2021-09-16] MEDS ORDERED: PANT20TA18 PO (16:15)
[2021-09-16] MEDS ORDERED: FURO40TA5 PO (16:15)
[2021-09-16] MEDS ORDERED: SIMV-43 PO (16:15)
[2021-09-16] MEDS: METOCLOPRAMIDE 10 MG/2 ML VIAL IVP SCH (17:51)
[2021-09-16] MEDS: CEFTRIAXONE 2GM VIAL IVP SCH (17:51)
[2021-09-16 20:00] VITALS: BP 151/58
[2021-09-16] MEDS: GABAPENTIN 100 MG CAPSULE PO SCH (20:15)
[2021-09-16] MEDS: TAMSULOSIN HCL 0.4 MG CAP.ER.24H PO SCH (20:15)
[2021-09-16] MEDS: SIMVASTATIN 20 MG TABLET PO SCH (20:16)
[2021-09-16 21:26] LABS: APPEARANCE,URINE Clear (CLEAR); BILIRUBIN,URINE Negative (NEGATIVE); COLOR,URINE Yellow (YELLOW); GLUCOSE, URINE (UA) Negative (NEGATIVE); KETONES,URINE Negative (NEGATIVE); LEUKOCYTE ESTERASE ,URINE Negative (NEGATIVE); NITRATE,URINE Negative (NEGATIVE); OCCULT BLOOD,URINE Negative (NEGATIVE); PROTEIN,URINE Negative (NEGATIVE); UROBILINOGEN,URINE 0.2 mg/dL (0.2-1.0)
[2021-09-17] VITALS: BP 176/57
[2021-09-17 04:00] VITALS: BP 142/55
[2021-09-17 04:47] LABS: BASOPHILS % (AUTO) 0.9 % (0.0-5.0); EOSINOPHILS % (AUTO) 3.3 % (0.0-8.0); HEMATOCRIT 27.4 % (42-54); LYMPHOCYTES % (AUTO) 19.3 % (21.0-51.0); MEAN CORPUSCULAR HEMOGLOBIN 29.8 pg (27.0-33.0); MEAN CORPUSCULAR HGB CONC 33.2 g/dL (32.0-36.0); MEAN CORPUSCULAR VOLUME 89.8 fL (79-99); MONOCYTES % (AUTO) 11.4 % (3.0-13.0); NEUTROPHILS % (AUTO) 64.7 % (40.0-77.0); PLATELET COUNT (AUTO) 140 K/uL (130-400); RED BLOOD CELL COUNT(AUTO) 3.05 MIL/uL (4.50-6.20); RED CELL DISTRIBUTION WIDTH 12.4 % (11.0-15.5); WHITE BLOOD COUNT (AUTO) 4.6 K/uL (4.8-10.8)
[2021-09-17 04:58] LABS: CREATININE 2.4 mg/dL (0.5-1.5); MAGNESIUM 2.3 mg/dL (1.80-2.40); POTASSIUM 4.1 mmol/L (3.5-5.1)
[2021-09-17] MEDS: LINACLOTIDE 145 MCG PO SCH (07:30)
[2021-09-17] MEDS: METOCLOPRAMIDE 10 MG/2 ML VIAL IVP SCH ×3 (07:54→16:31)
[2021-09-17 08:05] VITALS: BP 159/70
[2021-09-17] MEDS: PANTOPRAZOLE 40 MG TAB DR PO SCH (08:53)
[2021-09-17] MEDS: GABAPENTIN 100 MG CAPSULE PO SCH ×3 (08:53→20:03)
[2021-09-17] MEDS: TAMSULOSIN HCL 0.4 MG CAP.ER.24H PO SCH ×2 (08:53→20:03)
[2021-09-17] MEDS: POLYETHYLENE GLYCOL 3350 17 GM POWD.PACK PO SCH (08:54)
[2021-09-17] MEDS: BISACODYL 10 MG SUPP.RECT RC SCH (11:35)
[2021-09-17 12:08] VITALS: BP 157/55
[2021-09-17 16:00] VITALS: BP 153/54
[2021-09-17] MEDS: CEFTRIAXONE 2GM VIAL IVP SCH (16:31)
[2021-09-17 20:00] VITALS: BP 123/61
[2021-09-17] MEDS: SIMVASTATIN 20 MG TABLET PO SCH (20:03)
[2021-09-18] VITALS: BP 106/73
[2021-09-18] MEDS ORDERED: SIMETHICONE 80 MG TAB.CHEW PO PRN
[2021-09-18] MEDS ORDERED: ACETAMINOPHEN 325 MG TAB PO PRN ×2
[2021-09-18] MEDS ORDERED: SIMETHICONE 80 MG TAB.CHEW PO SCH
[2021-09-18] MEDS ORDERED: MAGNESIUM CITRATE 296 ML SOLUTION PO ONE
[2021-09-18 00:18] LABS: CREATININE 2.3 mg/dL (0.5-1.5); POTASSIUM 4.2 mmol/L (3.5-5.1)
[2021-09-18 04:08] VITALS: BP 120/65
[2021-09-18 06:08] LABS: ALBUMIN 3.6 g/dL (3.5-5.0); BILIRUBIN,TOTAL 0.3 mg/dL (0.2-1.0); CREATININE 2.3 mg/dL (0.5-1.5); POTASSIUM 3.8 mmol/L (3.5-5.1); TOTAL PROTEIN, SERUM 7.1 g/dL (6.0-8.3)
[2021-09-18] MEDS: METOCLOPRAMIDE 10 MG/2 ML VIAL IVP SCH (06:40)
[2021-09-18] MEDS: LINACLOTIDE 145 MCG PO SCH (06:40)
[2021-09-18 08:00] VITALS: BP 173/69
[2021-09-18] MEDS: POLYETHYLENE GLYCOL 3350 17 GM POWD.PACK PO SCH (08:19)
[2021-09-18] MEDS: GABAPENTIN 100 MG CAPSULE PO SCH (08:19)
[2021-09-18] MEDS: TAMSULOSIN HCL 0.4 MG CAP.ER.24H PO SCH (08:19)
[2021-09-18] MEDS: PANTOPRAZOLE 40 MG TAB DR PO SCH (08:22)
[2021-09-18] MEDS: BISACODYL 10 MG SUPP.RECT RC SCH (08:23)
[2021-09-18] MEDS ORDERED: METO5 PO (09:28)
== END 2021-09-18 10:40 | disposition home or self-care (01) ==
LOC: EDH 11:49 → EDHIP 14:12 → 3DH 15:21
PROVIDERS: ADMIT Internal Medicine Critical Care Medicine; ATTEND Internal Medicine Critical Care Medicine
DX: R10.84 Generalized abdominal pain (principal); E87.1 Hypo-osmolality and hyponatremia; R11.2 Nausea with vomiting, unspecified; N17.9 Acute kidney failure, unspecified; I12.9 Hypertensive chronic kidney disease with stage 1 through stage 4 chronic kidney disease, or unspecified chronic kidney disease; N18.9 Chronic kidney disease, unspecified; E78.5 Hyperlipidemia, unspecified; N40.0 Benign prostatic hyperplasia without lower urinary tract symptoms; J30.2 Other seasonal allergic rhinitis; E66.9 Obesity, unspecified; N28.1 Cyst of kidney, acquired; N41.9 Inflammatory disease of prostate, unspecified; K59.09 Other constipation; G47.33 Obstructive sleep apnea (adult) (pediatric); K57.90 Diverticulosis of intestine, part unspecified, without perforation or abscess without bleeding; K21.9 Gastro-esophageal reflux disease without esophagitis; M19.90 Unspecified osteoarthritis, unspecified site; D64.9 Anemia, unspecified; Z79.899 Other long term (current) drug therapy; Z68.34 Body mass index [BMI] 34.0-34.9, adult; Z87.442 Personal history of urinary calculi; Z87.891 Personal history of nicotine dependence; Z91.19 Patient's noncompliance with other medical treatment and regimen; Z98.890 Other specified postprocedural states
CPT/HCPCS: 36415 ×3; 71045; 74176; 76705; 80048 ×2; 80053 ×2; 81003; 83690; 83735; 84484; 85025 ×2; 86140; 93005 ×2; 96361; 96374; 96375; 96376 ×2; 99285; G0378 ×44; J0696 ×2; J2405; J2765 ×5; J3490

== ENCOUNTER 2021-09-25 16:58 | Inpatient (IN) | payer OTHER ==
[~2021-09-25] VITALS: Ht 172.7 cm; Wt 105.0 kg
[~2021-09-25 16:58] MED LIST changes: -FURO40TA5 PO; +METO5 PO
[2021-09-25] MEDS ORDERED: IPRATROPIUM/ALBUTEROL SULFATE 3 ML SOLUTION IH ONE ×2 (17:30→19:30)
[2021-09-25] MEDS ORDERED: ACETAMINOPHEN WITH CODEINE 1 TAB TAB PO ONE (17:30)
[2021-09-25] MEDS ORDERED: FUROSEMIDE 40MG VIAL IV ONE (17:30)
[2021-09-25] MEDS ORDERED: ALBUTEROL 0.042% 1.25MG/3ML IH ONE (17:30)
[2021-09-25 17:43] LABS: CARBON DIOXIDE 32 mmol/L (21-32); CHLORIDE 93 mmol/L (101-111); GLOMERULAR FILTR. RATE CALC 21 mL/min (>60); GLUCOSE,RANDOM 181 mg/dL (70-105); POTASSIUM 4.6 mmol/L (3.5-5.1); SODIUM SERUM 131 mmol/L (136-145); UREA NITROGEN, BLOOD 49 mg/dL (7-18)
[2021-09-25 17:47] LABS: ALANINE AMINOTRANSFERASE 20 U/L (12-78); ALBUMIN 3.7 g/dL (3.5-5.0); ASPARTATE AMINOTRANSFERASE 22 U/L (10-37); BILIRUBIN,TOTAL 0.5 mg/dL (0.2-1.0); TOTAL PROTEIN, SERUM 6.9 g/dL (6.0-8.3)
[2021-09-25 17:48] LABS: CRP QUANTITATIVE < 2.00 mg/L (0.00-9.0)
[2021-09-25] MEDS ORDERED: CEFTRIAXONE 1G VIAL IVP ONE (18:00)
[2021-09-25] MEDS ORDERED: AZITHROMYCIN 250 MG TABLET PO ONE (18:00)
[2021-09-25 18:01] LABS: BASOPHILS % (AUTO) 0.7 % (0.0-5.0); EOSINOPHILS % (AUTO) 2.8 % (0.0-8.0); HEMATOCRIT 28.6 % (42-54); LYMPHOCYTES % (AUTO) 21.3 % (21.0-51.0); MEAN CORPUSCULAR HEMOGLOBIN 30.6 pg (27.0-33.0); MEAN CORPUSCULAR HGB CONC 33.2 g/dL (32.0-36.0); MEAN CORPUSCULAR VOLUME 92.3 fL (79-99); MONOCYTES % (AUTO) 8.2 % (3.0-13.0); NEUTROPHILS % (AUTO) 66.8 % (40.0-77.0); PLATELET COUNT (AUTO) 158 K/uL (130-400); RED CELL DISTRIBUTION WIDTH 12.4 % (11.0-15.5); WHITE BLOOD COUNT (AUTO) 5.4 K/uL (4.8-10.8)
[2021-09-25 18:03] LABS: B-TYPE NATRIURETIC PEPTIDE 221 pg/mL (0-100)
[2021-09-25 18:06] LABS: BILIRUBIN,URINE Negative (NEGATIVE); COLOR,URINE Yellow (YELLOW); GLUCOSE, URINE (UA) Negative (NEGATIVE); KETONES,URINE Negative (NEGATIVE); LEUKOCYTE ESTERASE ,URINE Negative (NEGATIVE); NITRATE,URINE Negative (NEGATIVE); OCCULT BLOOD,URINE Negative (NEGATIVE); PH,URINE 6.5 (5.0-8.0); PROTEIN,URINE Negative (NEGATIVE); UROBILINOGEN,URINE 0.2 mg/dL (0.2-1.0)
[2021-09-25 18:09] LABS: APPEARANCE,URINE CLEAR (CLEAR)
[2021-09-25] MEDS ORDERED: ONDANSETRON 4MG INJ IV PRN (19:00)
[2021-09-25] MEDS ORDERED: GUAIFENESIN-DM 200/20 MG 10 ML PO PRN (19:00)
[2021-09-25] MEDS ORDERED: ACETAMINOPHEN 325 MG TAB PO PRN ×2 (19:00)
[2021-09-25] MEDS ORDERED: NITROGLYCERIN 0.4 MG SL TAB SL PRN (19:00)
[2021-09-25] MEDS ORDERED: MAG/ALUM/SIMETH 30 ML UDCUP PO PRN (19:00)
[2021-09-25] MEDS ORDERED: LACTULOSE 20 GM/30 ML UDCUP PO PRN (19:00)
[2021-09-25] MEDS ORDERED: OSELTAMIVIR PHOSPHATE 75 MG CAP PO SCH (19:10)
[2021-09-25] MEDS ORDERED: HYDRALAZINE HCL 10 MG TABLET PO PRN (20:30)
[2021-09-25 21:31] VITALS: BP 199/74
[2021-09-25] MEDS: IPRATROPIUM/ALBUTEROL SULFATE 3 ML SOLUTION IH SCH (23:37)
[2021-09-26] VITALS (7 sets, daily range): BP systolic 124–185; BP diastolic 59–87
[2021-09-26] MEDS ORDERED: HYDROMORPHONE 0.5 MG SYG (0.5MG/0.5ML) ONE (00:24)
[2021-09-26] MEDS: ZOLPIDEM TARTRATE 5 MG TAB PO PRN ×2 (00:46→21:15)
[2021-09-26] MEDS ORDERED: HYDROMORPHONE 0.5 MG SYG (0.5MG/0.5ML) IVP ONE (01:00)
[2021-09-26 04:33] LABS: HEMATOCRIT 26.6 % (42-54); MEAN CORPUSCULAR HEMOGLOBIN 30.3 pg (27.0-33.0); MEAN CORPUSCULAR HGB CONC 33.5 g/dL (32.0-36.0); MEAN CORPUSCULAR VOLUME 90.5 fL (79-99); PLATELET COUNT (AUTO) 157 K/uL (130-400); RED BLOOD CELL COUNT(AUTO) 2.94 MIL/uL (4.50-6.20); RED CELL DISTRIBUTION WIDTH 12.3 % (11.0-15.5); WHITE BLOOD COUNT (AUTO) 6.4 K/uL (4.8-10.8)
[2021-09-26 04:47] LABS: CREATININE 2.8 mg/dL (0.5-1.5)
[2021-09-26] MEDS ORDERED: POTASSIUM CHLORIDE 10% ELIXIR 20 MEQ/15 ML UDCUP PO PRN (05:30)
[2021-09-26] MEDS ORDERED: KCL 20 MEQ ERTAB PO PRN (05:30)
[2021-09-26] MEDS ORDERED: MAGNESIUM 2GM PREMIX 50ML 50 ML IV PRN (05:30)
[2021-09-26] MEDS ORDERED: GLUCAGON 1MG KIT 1 MG ML IM PRN (05:30)
[2021-09-26] MEDS ORDERED: POTASSIUM CHLORIDE 10MEQ/100ML 100 ML IV PRN (05:30)
[2021-09-26] MEDS ORDERED: DEXTROSE 50%-WATER 50 ML DISP.SYRIN IV PRN (05:30)
[2021-09-26 05:32] LABS: EOSINOPHILS % (MANUAL) 1 % (1-6); LYMPHOCYTES % (MANUAL) 14 % (22-44); MONOCYTES % (MANUAL) 5 % (2-9); SEGMENTED NEUTROPHILS % 80 % (40-70)
[2021-09-26 05:33] LABS: MAN.DIFF COMMENT-IMPRESSION MANUAL DIFFERENTIAL; PLATELET MORPHOLOGY COMMENT SLIGHTLY DECREASED
[2021-09-26] MEDS: INSULIN HUMULIN R 100 UNIT/ML 3ML SQ SCH ×4 (06:26→21:00)
[2021-09-26] MEDS: SOLU-MEDROL 40MG VIAL IVP SCH ×4 (06:26→23:17)
[2021-09-26] MEDS: IPRATROPIUM/ALBUTEROL SULFATE 3 ML SOLUTION IH SCH ×3 (06:44→19:03)
[2021-09-26] MEDS ORDERED: FUROSEMIDE 20MG VIAL IV SCH ×2 (08:00)
[2021-09-26] MEDS: CEFTRIAXONE 1G VIAL IVP SCH (08:30)
[2021-09-26] MEDS: ATENOLOL 50 MG TABLET PO SCH ×2 (08:32→21:15)
[2021-09-26] MEDS ORDERED: TAMSULOSIN HCL 0.4 MG CAP.ER.24H PO SCH (09:00)
[2021-09-26] MEDS ORDERED: ENOXAPARIN SODIUM 40 MG/0.4 ML SYRINGE SQ SCH (09:00)
[2021-09-26] MEDS ORDERED: FAMOTIDINE 20MG VIAL IV SCH (09:00)
[2021-09-26 14:04] LABS: INR 1.04 (0.85-1.15); PROTHROMBIN TIME 11.3 SEC (9.6-11.6)
[2021-09-26 14:05] LABS: PARTIAL THROMBOPLASTIN TIME 33.6 SEC (26.3-35.5)
[2021-09-26] MEDS ORDERED: GABAPENTIN 100 MG CAPSULE PO SCH (21:00)
[2021-09-26] MEDS: AZITHROMYCIN 250 MG TABLET PO SCH (21:13)
[2021-09-26] MEDS: SIMVASTATIN 10 MG TABLET PO SCH (21:14)
[2021-09-27] VITALS (7 sets, daily range): BP systolic 120–159; BP diastolic 46–80
[2021-09-27] MEDS: IPRATROPIUM/ALBUTEROL SULFATE 3 ML SOLUTION IH SCH ×5 (00:01→23:30)
[2021-09-27 04:53] LABS: BASOPHILS % (AUTO) 0.2 % (0.0-5.0); HEMATOCRIT 28.8 % (42-54); LYMPHOCYTES % (AUTO) 13.6 % (21.0-51.0); MEAN CORPUSCULAR HEMOGLOBIN 29.8 pg (27.0-33.0); MEAN CORPUSCULAR HGB CONC 32.3 g/dL (32.0-36.0); MEAN CORPUSCULAR VOLUME 92.3 fL (79-99); MONOCYTES % (AUTO) 2.1 % (3.0-13.0); NEUTROPHILS % (AUTO) 83.7 % (40.0-77.0); PLATELET COUNT (AUTO) 166 K/uL (130-400); RED BLOOD CELL COUNT(AUTO) 3.12 MIL/uL (4.50-6.20); WHITE BLOOD COUNT (AUTO) 4.9 K/uL (4.8-10.8)
[2021-09-27 04:58] LABS: CREATININE 2.6 mg/dL (0.5-1.5); POTASSIUM 4.2 mmol/L (3.5-5.1)
[2021-09-27] MEDS: INSULIN HUMULIN R 100 UNIT/ML 3ML SQ SCH ×4 (06:09→21:14)
[2021-09-27] MEDS: SOLU-MEDROL 40MG VIAL IVP SCH ×4 (06:31→21:14)
[2021-09-27] MEDS: ATENOLOL 50 MG TABLET PO SCH ×4 (09:00→21:07)
[2021-09-27] MEDS: CEFTRIAXONE 1G VIAL IVP SCH (09:02)
[2021-09-27] MEDS: GABAPENTIN 100 MG CAPSULE PO SCH ×3 (09:16→21:06)
[2021-09-27] MEDS: METOCLOPRAMIDE 5 MG TABLET PO SCH (09:16)
[2021-09-27] MEDS: HYDROCORTISONE 25 MG SUPPOSITORY PR SCH ×2 (12:00→21:08)
[2021-09-27] MEDS ORDERED: OSELTAMIVIR PHOSPHATE 75 MG CAP PO SCH (17:00)
[2021-09-27] MEDS: DOCUSATE SODIUM 100 MG CAP PO SCH ×2 (17:08→21:06)
[2021-09-27] MEDS: PANTOPRAZOLE 40 MG TAB DR PO SCH (17:11)
[2021-09-27] MEDS ORDERED: TAMSULOSIN HCL 0.4 MG CAP.ER.24H PO SCH (21:00)
[2021-09-27] MEDS ORDERED: FAMOTIDINE 20MG TAB PO SCH (21:00)
[2021-09-27] MEDS: AZITHROMYCIN 250 MG TABLET PO SCH (21:05)
[2021-09-27] MEDS: SIMVASTATIN 10 MG TABLET PO SCH (21:08)
[2021-09-28 03:11] VITALS: BP 156/83
[2021-09-28 04:41] LABS: HEMATOCRIT 26.9 % (42-54); MEAN CORPUSCULAR HEMOGLOBIN 30.3 pg (27.0-33.0); MEAN CORPUSCULAR HGB CONC 33.1 g/dL (32.0-36.0); MEAN CORPUSCULAR VOLUME 91.5 fL (79-99); RED BLOOD CELL COUNT(AUTO) 2.94 MIL/uL (4.50-6.20); RED CELL DISTRIBUTION WIDTH 12.6 % (11.0-15.5); WHITE BLOOD COUNT (AUTO) 8.6 K/uL (4.8-10.8)
[2021-09-28 04:55] LABS: ALBUMIN 3.2 g/dL (3.5-5.0); BILIRUBIN,TOTAL 0.2 mg/dL (0.2-1.0); CREATININE 2.6 mg/dL (0.5-1.5); MAGNESIUM 3.4 mg/dL (1.80-2.40); POTASSIUM 4.6 mmol/L (3.5-5.1); TOTAL PROTEIN, SERUM 6.3 g/dL (6.0-8.3)
[2021-09-28] MEDS: SOLU-MEDROL 40MG VIAL IVP SCH ×2 (05:13→11:30)
[2021-09-28] MEDS: IPRATROPIUM/ALBUTEROL SULFATE 3 ML SOLUTION IH SCH ×2 (06:18→11:20)
[2021-09-28] MEDS: PANTOPRAZOLE 40 MG TAB DR PO SCH (06:35)
[2021-09-28] MEDS: INSULIN HUMULIN R 100 UNIT/ML 3ML SQ SCH ×3 (06:40→17:13)
[2021-09-28] MEDS ORDERED: ***HM***(Linaclotide (Linzess) 145 MCG) PO SCH (07:30)
[2021-09-28 08:00] VITALS: BP 158/68
[2021-09-28] MEDS ORDERED: FUROSEMIDE 40MG VIAL IV SCH (08:00)
[2021-09-28] MEDS: GABAPENTIN 100 MG CAPSULE PO SCH ×2 (09:00→17:16)
[2021-09-28] MEDS: ATENOLOL 50 MG TABLET PO SCH ×2 (09:00→09:05)
[2021-09-28] MEDS: HYDROCORTISONE 25 MG SUPPOSITORY PR SCH (09:04)
[2021-09-28] MEDS: CEFTRIAXONE 1G VIAL IVP SCH (09:04)
[2021-09-28] MEDS: DOCUSATE SODIUM 100 MG CAP PO SCH (09:04)
[2021-09-28] MEDS: METOCLOPRAMIDE 5 MG TABLET PO SCH (09:05)
[2021-09-28 12:00] VITALS: BP 163/67
[2021-09-28 16:00] VITALS: BP 140/67
== END 2021-09-28 18:00 | disposition home or self-care (01) | DRG 193 ==
LOC: EDH 16:58 → EDHIP 18:28 → OBSVTOIN 18:28 → 3CH 20:58
PROVIDERS: ADMIT Internal Medicine Critical Care Medicine; ATTEND Internal Medicine Critical Care Medicine
DX: J12.9 Viral pneumonia, unspecified (principal); J96.01 Acute respiratory failure with hypoxia; N17.9 Acute kidney failure, unspecified; N18.4 Chronic kidney disease, stage 4 (severe); E78.5 Hyperlipidemia, unspecified; E66.9 Obesity, unspecified; J30.2 Other seasonal allergic rhinitis; I10 Essential (primary) hypertension; Z68.34 Body mass index [BMI] 34.0-34.9, adult; E78.00 Pure hypercholesterolemia, unspecified; Z20.822 Contact with and (suspected) exposure to COVID-19; G89.29 Other chronic pain; G47.33 Obstructive sleep apnea (adult) (pediatric); I12.9 Hypertensive chronic kidney disease with stage 1 through stage 4 chronic kidney disease, or unspecified chronic kidney disease; K64.9 Unspecified hemorrhoids; K59.00 Constipation, unspecified; J10.1 Influenza due to other identified influenza virus with other respiratory manifestations; Z87.891 Personal history of nicotine dependence; Z91.19 Patient's noncompliance with other medical treatment and regimen; R58 Hemorrhage, not elsewhere classified; N40.0 Benign prostatic hyperplasia without lower urinary tract symptoms
CPT/HCPCS: 36415; 71045; 74176; 80048; 80053; 81003; 82948; 83735; 83880; 84100; 84484; 85025; 85027; 85610; 85730; 86140; 87635; 87804; 93005; 94640; 94664; 96374; 97039; C9803; G0378; J0696; J1170; J1650; J1940; J2920; J3490

== ENCOUNTER → 2021-10-14 | Outpatient (CLI) | payer OTHER ==
[~2021-10-14] MED LIST changes: -ATEN100T PO
== END | disposition home or self-care (01) ==
LOC: RAH 11:05
PROVIDERS: ATTEND Internal Medicine
DX: N28.1 Cyst of kidney, acquired (principal); N39.498 Other specified urinary incontinence
CPT/HCPCS: 76770

== ENCOUNTER 2021-12-12 19:04 | Emergency (ER) | payer OTHER ==
[~2021-12-12] VITALS: Ht 172.7 cm; Wt 107.0 kg
[2021-12-12] MEDS ORDERED: FUROSEMIDE 40MG VIAL IV ONE (19:30)
[2021-12-12 19:51] VITALS: BP 170/60
[2021-12-12 19:57] LABS: BASOPHILS % (AUTO) 0.3 % (0.0-5.0); EOSINOPHILS % (AUTO) 2.6 % (0.0-8.0); HEMATOCRIT 29.8 % (42-54); MEAN CORPUSCULAR HEMOGLOBIN 29.3 pg (27.0-33.0); MEAN CORPUSCULAR HGB CONC 30.9 g/dL (32.0-36.0); MEAN CORPUSCULAR VOLUME 94.9 fL (79-99); NEUTROPHILS % (AUTO) 70.9 % (40.0-77.0); PLATELET COUNT (AUTO) 154 K/uL (130-400); RED BLOOD CELL COUNT(AUTO) 3.14 MIL/uL (4.50-6.20); RED CELL DISTRIBUTION WIDTH 14.2 % (11.0-15.5); WHITE BLOOD COUNT (AUTO) 6.5 K/uL (4.8-10.8)
[2021-12-12 20:08] LABS: CREATININE 2.8 mg/dL (0.5-1.5); POTASSIUM 5.3 mmol/L (3.5-5.1)
[2021-12-12 20:17] LABS: ALBUMIN 3.8 g/dL (3.5-5.0); BILIRUBIN,TOTAL 0.3 mg/dL (0.2-1.0); MAGNESIUM 2.7 mg/dL (1.80-2.40); TOTAL PROTEIN, SERUM 7.4 g/dL (6.0-8.3)
[2021-12-12 20:19] LABS: B-TYPE NATRIURETIC PEPTIDE 555 pg/mL (0-100)
[2021-12-12] MEDS ORDERED: FURO40TA5 PO (21:05)
== END 2021-12-12 21:39 | disposition home or self-care (01) ==
LOC: EDH 19:04
DX: N28.9 Disorder of kidney and ureter, unspecified (principal); R60.0 Localized edema; I10 Essential (primary) hypertension; E78.00 Pure hypercholesterolemia, unspecified; Z79.899 Other long term (current) drug therapy
CPT/HCPCS: 36415; 71045; 80053; 83735; 83880; 84484; 85025; 93005; 96374; 99285; J1940

== ENCOUNTER 2022-05-11 08:21 | Emergency (ER) | payer OTHER ==
[~2022-05-11] VITALS: Ht 172.7 cm; Wt 95.3 kg
[~2022-05-11 08:21] MED LIST changes: +FURO40TA5 PO
[2022-05-11 08:55] LABS: BASOPHILS % (AUTO) 0.5 % (0.0-5.0); EOSINOPHILS % (AUTO) 3.2 % (0.0-8.0); HEMATOCRIT 31.2 % (42-54); LYMPHOCYTES % (AUTO) 14.7 % (21.0-51.0); MEAN CORPUSCULAR HEMOGLOBIN 30.3 pg (27.0-33.0); MEAN CORPUSCULAR HGB CONC 33.7 g/dL (32.0-36.0); MEAN CORPUSCULAR VOLUME 90.2 fL (79-99); MONOCYTES % (AUTO) 9.1 % (3.0-13.0); NEUTROPHILS % (AUTO) 71.9 % (40.0-77.0); PLATELET COUNT (AUTO) 200 K/uL (130-400); RED BLOOD CELL COUNT(AUTO) 3.46 MIL/uL (4.50-6.20); WHITE BLOOD COUNT (AUTO) 8.5 K/uL (4.8-10.8)
[2022-05-11 09:04] LABS: CREATININE 2.3 mg/dL (0.5-1.5); POTASSIUM 4.1 mmol/L (3.5-5.1)
[2022-05-11 09:21] LABS: ALBUMIN 2.9 g/dL (3.5-5.0); TOTAL PROTEIN, SERUM 6.6 g/dL (6.0-8.3)
[2022-05-11 09:33] LABS: CRP QUANTITATIVE 166.7 mg/L (0.00-9.0); MAGNESIUM 2.1 mg/dL (1.80-2.40)
[2022-05-11 10:22] LABS: APPEARANCE,URINE CLEAR (CLEAR); BILIRUBIN,URINE NEGATIVE (NEGATIVE); COLOR,URINE YELLOW (YELLOW); GLUCOSE, URINE (UA) NEGATIVE (NEGATIVE); KETONES,URINE NEGATIVE (NEGATIVE); LEUKOCYTE ESTERASE ,URINE NEGATIVE (NEGATIVE); NITRATE,URINE NEGATIVE (NEGATIVE); OCCULT BLOOD,URINE TRACE-INTACT (NEGATIVE); PH,URINE 5.5 (5.0-8.0); PROTEIN,URINE NEGATIVE (NEGATIVE); UROBILINOGEN,URINE 0.2 mg/dL (0.2-1.0)
[2022-05-11] MEDS ORDERED: 0.9% NACL 500ML IV.SOLN 500 ML IV ONE (10:30)
[2022-05-11 10:50] LABS: BACTERIA,URINE None Seen /HPF (None Seen); RBC,URINE 0-1 /HPF (0-1); SQUAMOUS EPITHELIAL CELL,UR 0-2 /HPF (0-2); WBC,URINE None Seen /HPF (0-1)
[2022-05-11 13:10] VITALS: BP 164/64
== END 2022-05-11 13:21 | disposition home or self-care (01) ==
LOC: EDH 08:21
DX: J10.1 Influenza due to other identified influenza virus with other respiratory manifestations (principal); G89.29 Other chronic pain; M54.50 Low back pain, unspecified; M48.00 Spinal stenosis, site unspecified; I12.9 Hypertensive chronic kidney disease with stage 1 through stage 4 chronic kidney disease, or unspecified chronic kidney disease; N18.9 Chronic kidney disease, unspecified; D63.1 Anemia in chronic kidney disease; Z20.822 Contact with and (suspected) exposure to COVID-19; M19.90 Unspecified osteoarthritis, unspecified site; E78.00 Pure hypercholesterolemia, unspecified; E86.0 Dehydration; Z79.899 Other long term (current) drug therapy; Z96.653 Presence of artificial knee joint, bilateral
CPT/HCPCS: 99285; 96360; 72131; 71045; 87635; 83735; 84484; 80053; 83880; 85025; 87804 ×2; 83605; 86140; 81001; 36415; 93005; C9803; J7040

== ENCOUNTER 2022-09-01 01:16 | Emergency (ER) | payer OTHER ==
[~2022-09-01] VITALS: Ht 172.7 cm; Wt 102.1 kg
[2022-09-01 01:54] LABS: APPEARANCE,URINE CLEAR (CLEAR); BILIRUBIN,URINE NEGATIVE (NEGATIVE); GLUCOSE, URINE (UA) NEGATIVE (NEGATIVE); KETONES,URINE NEGATIVE (NEGATIVE); LEUKOCYTE ESTERASE ,URINE NEGATIVE Leu/uL (NEGATIVE); NITRATE,URINE NEGATIVE (NEGATIVE); OCCULT BLOOD,URINE NEGATIVE (NEGATIVE); PH,URINE 5.5 (5.0-8.0); PROTEIN,URINE NEGATIVE (NEGATIVE); UROBILINOGEN,URINE 0.2 mg/dL (0.2-1.0)
[2022-09-01 01:59] LABS: BASOPHILS % (AUTO) 0.6 % (0.0-5.0); EOSINOPHILS % (AUTO) 2.2 % (0.0-8.0); HEMATOCRIT 28.9 % (42-54); LYMPHOCYTES % (AUTO) 22.3 % (21.0-51.0); MEAN CORPUSCULAR HEMOGLOBIN 29.6 pg (27.0-33.0); MEAN CORPUSCULAR HGB CONC 32.5 g/dL (32.0-36.0); MEAN CORPUSCULAR VOLUME 90.9 fL (79-99); MONOCYTES % (AUTO) 10.1 % (3.0-13.0); NEUTROPHILS % (AUTO) 64.2 % (40.0-77.0); PLATELET COUNT (AUTO) 155 K/uL (130-400); RED BLOOD CELL COUNT(AUTO) 3.18 MIL/uL (4.50-6.20); WHITE BLOOD COUNT (AUTO) 6.4 K/uL (4.8-10.8)
[2022-09-01 02:01] LABS: COLOR,URINE LIGHT-YELLOW (YELLOW)
[2022-09-01 02:09] LABS: CREATININE 2.7 mg/dL (0.5-1.5); POTASSIUM 3.9 mmol/L (3.5-5.1)
[2022-09-01 02:15] LABS: B-TYPE NATRIURETIC PEPTIDE 342 pg/mL (0-100)
[2022-09-01 02:18] LABS: ALBUMIN 3.3 g/dL (3.5-5.0); INR 0.94 (0.85-1.15); PROTHROMBIN TIME 10.3 SEC (9.6-11.6); TOTAL PROTEIN, SERUM 6.6 g/dL (6.0-8.3)
[2022-09-01 02:20] LABS: PARTIAL THROMBOPLASTIN TIME 30.2 SEC (26.3-35.5)
[2022-09-01 03:02] VITALS: BP 135/55
[2022-09-01] MEDS ORDERED: MORPHINE 2 MG SYG ONE (03:34)
[2022-09-01] MEDS ORDERED: MORPHINE 2 MG SYG IVP ONE (04:00)
[2022-09-01] MEDS ORDERED: IBUP-1493 PO (05:27)
[2022-09-01] MEDS ORDERED: ONDA-104 PO (05:27)
[2022-09-01] MEDS ORDERED: OMEP40CA21 PO (05:27)
== END 2022-09-01 05:37 | disposition home or self-care (01) ==
LOC: EDH 01:16
DX: K80.50 Calculus of bile duct without cholangitis or cholecystitis without obstruction (principal); I11.0 Hypertensive heart disease with heart failure; I50.9 Heart failure, unspecified; E78.00 Pure hypercholesterolemia, unspecified; M19.90 Unspecified osteoarthritis, unspecified site; Z98.890 Other specified postprocedural states; Z79.899 Other long term (current) drug therapy
CPT/HCPCS: 36415; 71046; 74176; 76705; 80053; 81003; 83605; 83690; 83880; 84484; 85025; 85610; 85730; 93005; 96374

== ENCOUNTER 2022-09-05 07:12 | Emergency (ER) | payer OTHER ==
[~2022-09-05] VITALS: Ht 172.7 cm; Wt 95.3 kg
[~2022-09-05 07:12] MED LIST changes: +IBUP-1493 PO; +OMEP40CA21 PO; +ONDA-104 PO
[2022-09-05 07:58] LABS: APPEARANCE,URINE CLEAR (CLEAR); BILIRUBIN,URINE NEGATIVE (NEGATIVE); COLOR,URINE COLORLESS (YELLOW); GLUCOSE, URINE (UA) NEGATIVE (NEGATIVE); KETONES,URINE NEGATIVE (NEGATIVE); LEUKOCYTE ESTERASE ,URINE NEGATIVE Leu/uL (NEGATIVE); NITRATE,URINE NEGATIVE (NEGATIVE); OCCULT BLOOD,URINE NEGATIVE (NEGATIVE); PH,URINE 5.5 (5.0-8.0); PROTEIN,URINE NEGATIVE (NEGATIVE); UROBILINOGEN,URINE 0.2 mg/dL (0.2-1.0)
[2022-09-05 08:00] LABS: RBC,URINE 0-1 /HPF (0-1); SQUAMOUS EPITHELIAL CELL,UR RARE /HPF (0-2); WBC,URINE 0-1 /HPF (0-1)
[2022-09-05] MEDS ORDERED: LACT10SO9 PO (11:59)
[2022-09-05] MEDS ORDERED: LACTULOSE 20 GM/30 ML UDCUP PR SCH (12:00)
[2022-09-05 13:20] VITALS: BP 133/65
== END 2022-09-05 13:25 | disposition home or self-care (01) ==
LOC: EDH 07:12
DX: N32.0 Bladder-neck obstruction (principal); R10.30 Lower abdominal pain, unspecified; R33.9 Retention of urine, unspecified; K59.00 Constipation, unspecified; E78.00 Pure hypercholesterolemia, unspecified; I11.0 Hypertensive heart disease with heart failure; I50.9 Heart failure, unspecified; Z79.1 Long term (current) use of non-steroidal anti-inflammatories (NSAID); Z96.653 Presence of artificial knee joint, bilateral
CPT/HCPCS: 51702; 74018; 81001

== ENCOUNTER 2024-01-17 03:56 | Emergency (ER) | payer OTHER ==
[~2024-01-17] VITALS: Ht 172.7 cm; Wt 99.8 kg
[~2024-01-17 03:56] MED LIST changes: +FLUT1DIS4 IH; -GABA-529 PO; +GLIP-162 PO; -IBUP-1493 PO; -METO5 PO; -OMEP40CA21 PO; -ONDA-104 PO; +ONDA4TAB10 PO; +OSEL75 PO; +OXYB5TAB20 PO; -PANT20TA18 PO; +PRED20TA3 PO; -SIMV-43 PO; -TAMS-1 PO
[2024-01-17] MEDS: HYDROCODONE/ACETAMINOPHEN 5/325 MG TAB PO ONE (04:49)
[2024-01-17] MEDS ORDERED: LIDOCAINE HCL 1% 20 ML VIAL ONE (06:45)
[2024-01-17] MEDS ORDERED: CEPH500T PO (07:12)
[2024-01-17] MEDS: TETANUS/DIPHTHERIA TOXOID [ADULT] 0.5 ML VIAL IM ONE (07:59)
[2024-01-17] MEDS: CEPHALEXIN 500 MG CAPSULE PO ONE (08:00)
[2024-01-17 08:24] VITALS: BP 145/96; PULSE 78; RESP 18; O2SAT 98
== END 2024-01-17 08:27 | disposition home or self-care (01) ==
LOC: EDH 03:56
DX: S70.12XA Contusion of left thigh, initial encounter (principal); S80.12XA Contusion of left lower leg, initial encounter; S81.812A Laceration without foreign body, left lower leg, initial encounter; S20.212A Contusion of left front wall of thorax, initial encounter; I10 Essential (primary) hypertension; E11.9 Type 2 diabetes mellitus without complications; M19.90 Unspecified osteoarthritis, unspecified site; Z79.84 Long term (current) use of oral hypoglycemic drugs; Z79.899 Other long term (current) drug therapy; Z98.890 Other specified postprocedural states; W18.39XA Other fall on same level, initial encounter; Y93.89 Activity, other specified; Y92.89 Other specified places as the place of occurrence of the external cause; Y99.8 Other external cause status
CPT/HCPCS: 12004; 71045; 73552; 73590; 90471; 90714

== ENCOUNTER 2024-06-05 15:04 | Emergency (ER) | payer OTHER ==
[~2024-06-05] VITALS: Ht 172.7 cm; Wt 92.5 kg
[~2024-06-05 15:04] MED LIST changes: +ASPI-1197 PO; -FAMO40TA7 PO; -FLUT1DIS4 IH; -FURO40TA5 PO; +LEVO50CA4 PO; -LINA145C PO; -ONDA4TAB10 PO; -OSEL75 PO; -PRED20TA3 PO; +SUCR1TAB2 PO
[2024-06-05] MEDS: ONDANSETRON 4MG INJ IVP ONE (16:26)
[2024-06-05] MEDS: MORPHINE 2 MG SYG IVP ONE ×2 (16:26→17:40)
[2024-06-05] MEDS: acetaMINOPHEN 500 MG TABLET PO ONE (18:40)
[2024-06-05] MEDS: hydrALAZine 20MG/ML VIAL IV ONE (18:40)
[2024-06-05 19:40] VITALS: BP 160/75; PULSE 88; RESP 18; O2SAT 96
== END 2024-06-05 19:49 | disposition home or self-care (01) ==
LOC: EDH 15:04
DX: S80.01XA Contusion of right knee, initial encounter (principal); R51.9 Headache, unspecified; M25.551 Pain in right hip; E11.9 Type 2 diabetes mellitus without complications; Z98.890 Other specified postprocedural states; Z79.899 Other long term (current) drug therapy; Z79.82 Long term (current) use of aspirin; Z79.84 Long term (current) use of oral hypoglycemic drugs; W18.39XA Other fall on same level, initial encounter; Y93.89 Activity, other specified; Y92.89 Other specified places as the place of occurrence of the external cause; Y99.8 Other external cause status
CPT/HCPCS: 99285; 70450; 96374; 96375; 73502; 73562; 72125; 71250; 74176; J2270 ×2; J0360; J2405